=== PATIENT | male | born 1945 | race African-American/Black ===

== ENCOUNTER 2018-07-13 11:11 | Inpatient (IN) ==
[2018-07-13] MEDS ORDERED: DILTIAZEM 50 MG/10 ML VIAL IV STA (11:19)
[2018-07-13] MEDS ORDERED: AMIODARONE INJ 150 MG in DEXTROSE 5% 100 ML IV ONE (11:23)
[2018-07-13] MEDS ORDERED: AMIODARONE INJ 450 MG in DEXTROSE 5% 241 ML IV SCH ×3 (11:30→17:30)
[2018-07-13 11:45] LABS: Apearance,Urine Slightly Hazy (Clear); Bilirubin,Urine Negative (Negative); Blood, Urine Negative (Negative); Glucose,Urine (UA) Negative (Negative); Ketones,Urine 5 mg/dL (Negative); Mucus,Urine Occasional /LPF (Occasional); Nitrite,Urine Negative (Negative); Protein,Urine Negative; RBC,Urine 6 /HPF (0-4); Squamous Epithelial Cell,Urine Occasional /HPF (0-10); Urine Color Yellow (Yellow); Urine Specific Gravity 1.026 (1.001-1.035); WBC,Urine 47 /HPF (0-6)
[2018-07-13 11:52] LABS: Barbiturates Screen,Urine Negative (Negative); Benzodiazepines Screen,Urine Negative (Negative); Cannabinoid Screen,Urine Positive (Negative); Opiate Screen,Urine Negative (Negative); Phencyclidine Screen,Urine Negative (Negative)
[2018-07-13 11:53] LABS: Basophils % 0.4 % (0.0-0.8); Eosinophils # 0.4 10*3/uL (0.0-0.87); Eosinophils % 4.6 % (0.00-10.9); Hematocrit 42.3 VOL% (42.0-52.0); Hemoglobin 12.9 GM/DL (14.0-18.0); Immature Granulocytes % 1.3 %; Immature Granulocytes Absolute 0.12 #; Lymphocytes # 3.6 10*3/uL (1.4-4.0); Lymphocytes % 39.2 % (21.2-54.2); Mean Corpuscular HGB Conc 30.5 GM/DL (32-36); Mean Corpuscular Volume 83.8 FL (87-102); Mean Platelet Volume 11.8 FL (9.6-12.0); Monocytes % 4.5 % (1.7-12.7); Platelet Count 256 T/CUMM (130-400); Red Blood Count 5.05 MC/CUMM (3.8-5.5); Red Cell Distribution Width 16.4 % (9.3-17.3); White Blood Count 9.1 T/CUMM (4-12)
[2018-07-13 12:02] LABS: ABG Base Excess -5.6 MMOL/L (-2.5-2.5); ABG HCO3 19.8 MMOL/L (20-26); ABG Oxygen Saturation 99.7 % (95-100); ABG PCO2 39.3 MM HG (35-48); ABG PH 7.317 (7.35-7.45); ABG TCO2 17.9 MMOL/L (23-27)
[2018-07-13] MEDS ORDERED: MAGNESIUM SULF RIDER 2 GM in PREMIX 1 EACH IV PRN (12:05)
[2018-07-13] MEDS ORDERED: MAGNESIUM SULF RIDER 4 GM in PREMIX 1 EACH IV PRN (12:05)
[2018-07-13] MEDS ORDERED: POTASSIUM CHLORIDE RIDER 10 MEQ in PREMIX 1 EACH IV PRN (12:05)
[2018-07-13 12:18] LABS: Calcium 8.6 MG/DL (8.5-10.1); Osmolality,Calculated 287.5 MOS/KG (273-304)
[2018-07-13] MEDS ORDERED: MIDAZOLAM 2 MG/2 ML VIAL ONE (12:27)
[2018-07-13] MEDS ORDERED: MIDAZOLAM 2 MG/2 ML VIAL IV STA (12:32)
[2018-07-13] MEDS: SODIUM CHLORIDE 0.45% 1,000 ML IV SCH (13:03)
[2018-07-13] MEDS ORDERED: ETOMIDATE 20 MG/10 ML VIAL IV ONE ×2 (13:12→13:15)
[2018-07-13] MEDS ORDERED: ROCURONIUM 100 MG/10 ML VIAL IV ONE ×2 (13:12→13:16)
[2018-07-13] MEDS: ENOXAPARIN 30 MG/0.3 ML SYRINGE SUBCUT SCH (13:55)
[2018-07-13] MEDS ORDERED: hydrALAZINE 20 MG/1 ML VIAL ONE (14:28)
[2018-07-13] MEDS ORDERED: hydrALAZINE 20 MG/1 ML VIAL IV STA (14:29)
[2018-07-13] MEDS ORDERED: HEPARIN/NACL 0.9% 2 UNITS/ML 500 ML IV ONE (15:52)
[2018-07-13] MEDS ORDERED: fentaNYL 100 MCG/2 ML VIAL IV PRN (16:04)
[2018-07-13] MEDS ORDERED: MIDAZOLAM 2 MG/2 ML VIAL IV PRN (16:30)
[2018-07-13] MEDS: CISATRACURIUM 200 MG in SODIUM CHLORIDE 0.9% 180 ML IV SCH (16:57)
[2018-07-13 17:04] LABS: Basophils % 0.2 % (0.0-0.8); Hematocrit 41.9 VOL% (42.0-52.0); Immature Granulocytes % 0.5 %; Immature Granulocytes Absolute 0.13 #; Lymphocytes # 0.7 10*3/uL (1.4-4.0); Lymphocytes % 2.6 % (21.2-54.2); Mean Corpuscular Volume 83.1 FL (87-102); Mean Platelet Volume 10.6 FL (9.6-12.0); Monocytes % 5.4 % (1.7-12.7); Neutrophils % 91.3 % (38.7-73.9); Platelet Count 275 T/CUMM (130-400); Red Blood Count 5.04 MC/CUMM (3.8-5.5); Red Cell Distribution Width 16.4 % (9.3-17.3); White Blood Count 25.7 T/CUMM (4-12)
[2018-07-13] MEDS: fentaNYL INJ 1,250 MCG in SODIUM CHLORIDE 0.9% 225 ML IV PRN (17:04)
[2018-07-13] MEDS: MIDAZOLAM 100 MG in SODIUM CHLORIDE 0.9% 80 ML IV SCH (17:08)
[2018-07-13 17:20] LABS: ABG Base Excess -6.1 MMOL/L (-2.5-2.5); ABG HCO3 19.5 MMOL/L (20-26); ABG Oxygen Saturation 99.5 % (95-100); ABG PCO2 56.7 MM HG (35-48); ABG PH 7.214 (7.35-7.45); ABG TCO2 20.5 MMOL/L (23-27); INR 1.1; PT Patient Result 11.4 SECS; Partial Thromboplastin Time 27.8 SECS (0-40)
[2018-07-13 17:34] LABS: Blood Urea Nitrogen 20 MG/DL (7-18); CKMB % 2.5 %; Calcium 8.3 MG/DL (8.5-10.1); Glucose 377 MG/DL (74-106); Osmolality,Calculated 292.7 MOS/KG (273-304)
[2018-07-13 17:42] LABS: Troponin I 0.095 NG/ML (0.00-0.045)
[2018-07-13] MEDS: PANTOPRAZOLE 40 MG VIAL IV SCH (17:48)
[2018-07-13] MEDS: MINERAL OIL/PETROLATUM OPH OINT 3.5 GM TUBE BOTH EYES SCH ×2 (17:52→20:27)
[2018-07-13] MEDS: INSULIN REGULAR 100 UNIT/ML IV SCH ×2 (18:26→22:08)
[2018-07-13] MEDS: AMIODARONE INJ 450 MG in DEXTROSE 5% 241 ML IV SCH (18:45)
[2018-07-13 19:06] LABS: ABG Base Excess -5.5 MMOL/L (-2.5-2.5); ABG Oxygen Saturation 99.4 % (95-100); ABG PCO2 54.8 MM HG (35-48); ABG PH 7.232 (7.35-7.45); ABG TCO2 20.6 MMOL/L (23-27)
[2018-07-13] MEDS ORDERED: INSULIN REGULAR DRIP 100 ML IV PRN (20:01)
[2018-07-13] MEDS ORDERED: MAGNESIUM SULF RIDER 1 GM in PREMIX 1 EACH IV PRN (20:05)
[2018-07-13] MEDS: POTASSIUM CHLORIDE RIDER 100 ML IV PRN (20:15)
[2018-07-13 21:30] LABS: Band Neutrophils 3 % (0-10); Lymphocytes 5 % (20-55); Segmented Neutrophils 88 % (50-85); Total Cells Counted 100
[2018-07-13 21:31] LABS: Anisocytosis 1+; Platelet Estimate Adequate; Smudge Cells Few
[2018-07-13 22:35] LABS: Basophils % 0.1 % (0.0-0.8); Hematocrit 39.9 VOL% (42.0-52.0); Hemoglobin 12.4 GM/DL (14.0-18.0); Immature Granulocytes % 0.7 %; Immature Granulocytes Absolute 0.12 #; Lymphocytes # 0.8 10*3/uL (1.4-4.0); Lymphocytes % 4.4 % (21.2-54.2); Mean Corpuscular HGB Conc 31.1 GM/DL (32-36); Mean Platelet Volume 10.4 FL (9.6-12.0); Monocytes % 3.5 % (1.7-12.7); Neutrophils % 91.3 % (38.7-73.9); Platelet Count 237 T/CUMM (130-400); Red Blood Count 4.81 MC/CUMM (3.8-5.5); Red Cell Distribution Width 16.4 % (9.3-17.3); White Blood Count 18.1 T/CUMM (4-12)
[2018-07-13 22:53] LABS: PT Patient Result 11.3 SECS; Partial Thromboplastin Time 28.3 SECS (0-40)
[2018-07-13 22:56] LABS: CKMB % 3.9 %; Calcium 8.4 MG/DL (8.5-10.1); Osmolality,Calculated 284.5 MOS/KG (273-304)
[2018-07-13 22:59] LABS: Troponin I 0.147 NG/ML (0.00-0.045)
[2018-07-13 23:31] LABS: Apearance,Urine Slightly Hazy (Clear); Bacteria,Urine Occasional /HPF (Few); Bilirubin,Urine Negative (Negative); Blood, Urine Negative (Negative); Glucose,Urine (UA) >=500 mg/dL (Negative); Ketones,Urine 5 mg/dL (Negative); Mucus,Urine Occasional /LPF (Occasional); Nitrite,Urine Negative (Negative); Protein,Urine Negative; RBC,Urine 2 /HPF (0-4); Squamous Epithelial Cell,Urine Occasional /HPF (0-10); Urine Color Amber (Yellow); Urine Specific Gravity 1.023 (1.001-1.035); WBC,Urine 20 /HPF (0-6)
[2018-07-13 23:45] LABS: Anisocytosis 1+; Band Neutrophils 2 % (0-10); Eosinophils 2 % (0-10); Lymphocytes 2 % (20-55); Ovalocytes Few; Platelet Estimate Adequate; Segmented Neutrophils 94 % (50-85); Total Cells Counted 100
[2018-07-13 23:46] LABS: Smudge Cells Few
[2018-07-14] MEDS: SODIUM CHLORIDE 0.45% 1,000 ML IV SCH ×3 (02:25→21:03)
[2018-07-14] MEDS: fentaNYL INJ 1,250 MCG in SODIUM CHLORIDE 0.9% 225 ML IV PRN ×2 (02:27→09:25)
[2018-07-14] MEDS: INSULIN REGULAR 100 UNIT/ML IV SCH ×7 (03:06→21:38)
[2018-07-14] MEDS: POTASSIUM CHLORIDE RIDER 100 ML IV PRN ×2 (03:07→12:25)
[2018-07-14 04:35] LABS: ABG Base Excess -1.4 MMOL/L (-2.5-2.5); ABG Oxygen Saturation 99.6 % (95-100); ABG PCO2 32.8 MM HG (35-48); ABG PH 7.444 (7.35-7.45); ABG PO2 366.2 MM HG (80-95)
[2018-07-14 05:02] LABS: Basophils % 0.1 % (0.0-0.8); Eosinophils % 0.1 % (0.00-10.9); Hematocrit 38.2 VOL% (42.0-52.0); Hemoglobin 12.2 GM/DL (14.0-18.0); Immature Granulocytes % 0.4 %; Immature Granulocytes Absolute 0.05 #; Lymphocytes # 1.3 10*3/uL (1.4-4.0); Lymphocytes % 9.5 % (21.2-54.2); Mean Corpuscular HGB Conc 31.9 GM/DL (32-36); Mean Corpuscular Volume 79.7 FL (87-102); Mean Platelet Volume 10.9 FL (9.6-12.0); Monocytes % 7.2 % (1.7-12.7); Neutrophils % 82.7 % (38.7-73.9); Platelet Count 227 T/CUMM (130-400); Red Blood Count 4.79 MC/CUMM (3.8-5.5); Red Cell Distribution Width 16.3 % (9.3-17.3); White Blood Count 13.3 T/CUMM (4-12)
[2018-07-14 05:21] LABS: PT Patient Result 11.2 SECS; Partial Thromboplastin Time 28.8 SECS (0-40)
[2018-07-14 05:40] LABS: CKMB % 5.6 %; Calcium 8.1 MG/DL (8.5-10.1); Osmolality,Calculated 277.5 MOS/KG (273-304); Risk Ratio 1.68
[2018-07-14 05:41] LABS: Troponin I 0.142 NG/ML (0.00-0.045)
[2018-07-14] MEDS ORDERED: DEXAMETHASONE INJ 10 MG in SODIUM CHLORIDE 0.9% 50 ML IV ONE (07:30)
[2018-07-14] MEDS: PIPERACILLIN/TAZOBACTAM 3,375 MG in SODIUM CHLORIDE 0.9% 100 ML IV SCH ×3 (08:56→22:57)
[2018-07-14] MEDS ORDERED: SODIUM CHLORIDE 0.9% 1,000 ML IV ONE (09:03)
[2018-07-14] MEDS ORDERED: SODIUM CHLORIDE 0.9% 500 ML IV ONE (09:20)
[2018-07-14] MEDS: MINERAL OIL/PETROLATUM OPH OINT 3.5 GM TUBE BOTH EYES SCH ×3 (09:31→20:32)
[2018-07-14] MEDS ORDERED: PHENYLEPHRINE DRIP 40 MG/250 ML PREMIX IV ONE (09:44)
[2018-07-14] MEDS ORDERED: PHENYLEPHRINE DRIP 40 MG/250 ML PREMIX IV PRN (09:46)
[2018-07-14] MEDS: ASPIRIN EC 81 MG TABLET PO SCH (10:36)
[2018-07-14] MEDS: AMIODARONE INJ 450 MG in DEXTROSE 5% 241 ML IV SCH (10:45)
[2018-07-14 11:41] LABS: Basophils % 0.2 % (0.0-0.8); Eosinophils % 0.1 % (0.00-10.9); Hematocrit 37.2 VOL% (42.0-52.0); Hemoglobin 11.9 GM/DL (14.0-18.0); Immature Granulocytes % 0.5 %; Immature Granulocytes Absolute 0.07 #; Lymphocytes # 1.2 10*3/uL (1.4-4.0); Lymphocytes % 8.3 % (21.2-54.2); Mean Corpuscular Volume 80.7 FL (87-102); Mean Platelet Volume 10.5 FL (9.6-12.0); Monocytes % 2.9 % (1.7-12.7); Platelet Count 228 T/CUMM (130-400); Red Blood Count 4.61 MC/CUMM (3.8-5.5); Red Cell Distribution Width 16.6 % (9.3-17.3)
[2018-07-14 11:47] LABS: PT Patient Result 11.2 SECS; Partial Thromboplastin Time 28.8 SECS (0-40)
[2018-07-14 12:06] LABS: Calcium 7.7 MG/DL (8.5-10.1); Osmolality,Calculated 282.3 MOS/KG (273-304)
[2018-07-14] MEDS: ENOXAPARIN 30 MG/0.3 ML SYRINGE SUBCUT SCH (13:18)
[2018-07-14] MEDS: DEXAMETHASONE 4 MG/1 ML VIAL IV SCH ×2 (13:23→18:13)
[2018-07-14 17:28] LABS: Basophils % 0.2 % (0.0-0.8); Hematocrit 39.8 VOL% (42.0-52.0); Hemoglobin 12.6 GM/DL (14.0-18.0); Immature Granulocytes % 0.4 %; Immature Granulocytes Absolute 0.06 #; Lymphocytes % 6.1 % (21.2-54.2); Mean Corpuscular HGB Conc 31.7 GM/DL (32-36); Mean Corpuscular Volume 80.1 FL (87-102); Mean Platelet Volume 10.6 FL (9.6-12.0); Monocytes % 1.2 % (1.7-12.7); Neutrophils % 92.1 % (38.7-73.9); Platelet Count 255 T/CUMM (130-400); Red Blood Count 4.97 MC/CUMM (3.8-5.5); Red Cell Distribution Width 16.6 % (9.3-17.3); White Blood Count 16.3 T/CUMM (4-12)
[2018-07-14 17:42] LABS: PT Patient Result 11.1 SECS; Partial Thromboplastin Time 32.9 SECS (0-40)
[2018-07-14 17:45] LABS: Calcium 8.1 MG/DL (8.5-10.1); Osmolality,Calculated 275.8 MOS/KG (273-304)
[2018-07-14 18:00] LABS: Lymphocytes 3 % (20-55); Platelet Estimate Normal; Segmented Neutrophils 96 % (50-85); Sickle Cells Few; Total Cells Counted 100
[2018-07-14] MEDS: CISATRACURIUM 200 MG in SODIUM CHLORIDE 0.9% 180 ML IV SCH (18:02)
[2018-07-14] MEDS: PANTOPRAZOLE 40 MG VIAL IV SCH (18:05)
[2018-07-14] MEDS: MIDAZOLAM 100 MG in SODIUM CHLORIDE 0.9% 80 ML IV SCH (18:10)
[2018-07-14] MEDS ORDERED: HEPARIN/NACL 0.9% 2 UNITS/ML 500 ML IV ONE (19:28)
[2018-07-14 23:14] LABS: Basophils % 0.1 % (0.0-0.8); Immature Granulocytes % 0.6 %; Lymphocytes # 0.8 10*3/uL (1.4-4.0); Lymphocytes % 5.1 % (21.2-54.2); Mean Corpuscular HGB Conc 31.6 GM/DL (32-36); Mean Corpuscular Volume 80.7 FL (87-102); Monocytes % 0.7 % (1.7-12.7); Neutrophils % 93.5 % (38.7-73.9); Platelet Count 238 T/CUMM (130-400); Red Blood Count 4.71 MC/CUMM (3.8-5.5); Red Cell Distribution Width 16.7 % (9.3-17.3); White Blood Count 16.2 T/CUMM (4-12)
[2018-07-14 23:22] LABS: PT Patient Result 11.1 SECS
[2018-07-14 23:23] LABS: Calcium 8.2 MG/DL (8.5-10.1); Osmolality,Calculated 276.7 MOS/KG (273-304)
[2018-07-14 23:56] LABS: Band Neutrophils 2 % (0-10); Lymphocytes 6 % (20-55); Segmented Neutrophils 91 % (50-85); Total Cells Counted 100
[2018-07-14 23:57] LABS: Acanthocytes Few; Anisocytosis 1+; Platelet Estimate Adequate
[2018-07-15] MEDS: DEXAMETHASONE 4 MG/1 ML VIAL IV SCH ×4 (00:55→18:11)
[2018-07-15] MEDS: INSULIN REGULAR 100 UNIT/ML IV SCH ×9 (01:06→21:50)
[2018-07-15] MEDS: SODIUM CHLORIDE 0.45% 1,000 ML IV SCH ×5 (01:16→22:27)
[2018-07-15 05:21] LABS: ABG Base Excess -4.6 MMOL/L (-2.5-2.5); ABG HCO3 20.6 MMOL/L (20-26); ABG Oxygen Saturation 99.5 % (95-100); ABG PCO2 32.2 MM HG (35-48); ABG PH 7.389 (7.35-7.45); ABG TCO2 17.3 MMOL/L (23-27)
[2018-07-15] MEDS ORDERED: MAGNESIUM SULF RIDER 1 GM in PREMIX 1 EACH IV PRN (06:04)
[2018-07-15 06:17] LABS: Basophils % 0.1 % (0.0-0.8); Hematocrit 36.2 VOL% (42.0-52.0); Hemoglobin 11.5 GM/DL (14.0-18.0); Immature Granulocytes % 0.5 %; Immature Granulocytes Absolute 0.08 #; Lymphocytes # 1.2 10*3/uL (1.4-4.0); Lymphocytes % 7.5 % (21.2-54.2); Mean Corpuscular HGB Conc 31.8 GM/DL (32-36); Mean Corpuscular Volume 80.4 FL (87-102); Monocytes % 1.3 % (1.7-12.7); Neutrophils % 90.6 % (38.7-73.9); Platelet Count 227 T/CUMM (130-400); Red Cell Distribution Width 16.8 % (9.3-17.3); White Blood Count 16.1 T/CUMM (4-12)
[2018-07-15 06:26] LABS: PT Patient Result 10.7 SECS; Partial Thromboplastin Time 29.2 SECS (0-40)
[2018-07-15] MEDS: PIPERACILLIN/TAZOBACTAM 3,375 MG in SODIUM CHLORIDE 0.9% 100 ML IV SCH ×3 (06:42→22:55)
[2018-07-15 06:52] LABS: CKMB % 8.1 %
[2018-07-15 06:53] LABS: Lymphocytes 10 % (20-55); Platelet Estimate Adequate; Segmented Neutrophils 89 % (50-85); Total Cells Counted 100; Troponin I 0.094 NG/ML (0.00-0.045)
[2018-07-15 06:54] LABS: Burr Cells Slight; Hypochromasia 1+; Ovalocytes Slight
[2018-07-15 07:03] LABS: Albumin 2.4 G/DL (3.4-5.0); Bilirubin,Total 0.4 MG/DL (0.2-1.0); Osmolality,Calculated 276.7 MOS/KG (273-304); Total Protein 5.7 G/DL (6.4-8.3)
[2018-07-15] MEDS: MORPHINE 4 MG/1 ML VIAL IV PRN ×2 (08:19→21:05)
[2018-07-15] MEDS: ASPIRIN EC 81 MG TABLET PO SCH (09:12)
[2018-07-15] MEDS: MINERAL OIL/PETROLATUM OPH OINT 3.5 GM TUBE BOTH EYES SCH ×3 (09:13→21:17)
[2018-07-15] MEDS ORDERED: PROPOFOL 1,000 MG/100 ML BOTTLE IV ONE (09:21)
[2018-07-15] MEDS: PROPOFOL 1,000 MG/100 ML BOTTLE IV SCH ×3 (09:40→18:35)
[2018-07-15] MEDS: ENOXAPARIN 30 MG/0.3 ML SYRINGE SUBCUT SCH (12:09)
[2018-07-15] MEDS: PANTOPRAZOLE 40 MG VIAL IV SCH (15:40)
[2018-07-15] MEDS: CISATRACURIUM 200 MG in SODIUM CHLORIDE 0.9% 180 ML IV SCH (15:54)
[2018-07-15] MEDS: MIDAZOLAM 100 MG in SODIUM CHLORIDE 0.9% 80 ML IV SCH (15:54)
[2018-07-16] MEDS: DEXAMETHASONE 4 MG/1 ML VIAL IV SCH ×4 (00:55→18:29)
[2018-07-16] MEDS: INSULIN REGULAR 100 UNIT/ML IV SCH ×6 (02:04→22:10)
[2018-07-16] MEDS: PROPOFOL 1,000 MG/100 ML BOTTLE IV SCH ×4 (02:45→20:30)
[2018-07-16] MEDS: SODIUM CHLORIDE 0.45% 1,000 ML IV SCH ×5 (03:46→23:11)
[2018-07-16 03:49] LABS: ABG Base Excess -2.2 MMOL/L (-2.5-2.5); ABG HCO3 22.2 MMOL/L (20-26); ABG Oxygen Saturation 99.2 % (95-100); ABG PCO2 36.9 MM HG (35-48); ABG PH 7.398 (7.35-7.45); ABG PO2 227.3 MM HG (80-95); ABG TCO2 23.4 MMOL/L (23-27)
[2018-07-16 03:56] LABS: Basophils % 0.1 % (0.0-0.8); Hematocrit 35.9 VOL% (42.0-52.0); Hemoglobin 11.7 GM/DL (14.0-18.0); Immature Granulocytes % 0.3 %; Immature Granulocytes Absolute 0.05 #; Lymphocytes # 0.5 10*3/uL (1.4-4.0); Lymphocytes % 3.1 % (21.2-54.2); Mean Corpuscular HGB Conc 32.6 GM/DL (32-36); Mean Corpuscular Volume 79.4 FL (87-102); Mean Platelet Volume 11.8 FL (9.6-12.0); Monocytes % 3.5 % (1.7-12.7); Platelet Count 230 T/CUMM (130-400); Red Blood Count 4.52 MC/CUMM (3.8-5.5); Red Cell Distribution Width 16.9 % (9.3-17.3)
[2018-07-16 04:29] LABS: Alanine Aminotransferase 85 U/L (16-61); Albumin 2.6 G/DL (3.4-5.0); Alkaline Phosphatase 75 U/L (45-117); Aspartate Amino Transferase 40 U/L (0-37); Bilirubin,Total < 0.39 MG/DL (0.2-1.0); Blood Urea Nitrogen 26 MG/DL (7-18); Glucose 110 MG/DL (74-106); Osmolality,Calculated 282.5 MOS/KG (273-304); Total Protein 6.1 G/DL (6.4-8.3)
[2018-07-16 04:36] LABS: Lymphocytes 2 % (20-55); Segmented Neutrophils 97 % (50-85); Target Cells Few; Total Cells Counted 100
[2018-07-16 04:37] LABS: % Iron Saturation 6.2 % (18-50); Burr Cells Slight; Microcytosis Slight
[2018-07-16 04:38] LABS: Hypochromasia Slight
[2018-07-16 04:39] LABS: Platelet Estimate Normal
[2018-07-16] MEDS: PIPERACILLIN/TAZOBACTAM 3,375 MG in SODIUM CHLORIDE 0.9% 100 ML IV SCH ×2 (06:31→17:00)
[2018-07-16] MEDS: MINERAL OIL/PETROLATUM OPH OINT 3.5 GM TUBE BOTH EYES SCH ×3 (08:44→21:41)
[2018-07-16] MEDS: ASPIRIN EC 81 MG TABLET PO SCH (08:44)
[2018-07-16] MEDS: MORPHINE 4 MG/1 ML VIAL IV PRN (10:07)
[2018-07-16] MEDS: FERRIC GLUCONATE COMPLEX 125 MG in SODIUM CHLORIDE 0.9% 100 ML IV SCH (10:21)
[2018-07-16] MEDS: AMIODARONE 200 MG TABLET PO SCH ×2 (11:35→21:41)
[2018-07-16] MEDS: ENOXAPARIN 30 MG/0.3 ML SYRINGE SUBCUT SCH (12:55)
[2018-07-16] MEDS ORDERED: DEXTROSE 50% 25 GM/50 ML SYRINGE IV PRN (15:00)
[2018-07-16] MEDS ORDERED: GLUCAGON 1 MG VIAL IM PRN (15:00)
[2018-07-16] MEDS: PANTOPRAZOLE 40 MG VIAL IV SCH (17:00)
[2018-07-17] MEDS: DEXAMETHASONE 4 MG/1 ML VIAL IV SCH ×4 (01:55→19:45)
[2018-07-17] MEDS: INSULIN REGULAR 100 UNIT/ML IV SCH ×2 (01:58→07:38)
[2018-07-17] MEDS: PROPOFOL 1,000 MG/100 ML BOTTLE IV SCH ×4 (03:45→22:09)
[2018-07-17 04:35] LABS: ABG Base Excess 1.5 MMOL/L (-2.5-2.5); ABG HCO3 25.7 MMOL/L (20-26); ABG Oxygen Saturation 99.8 % (95-100); ABG PCO2 33.9 MM HG (35-48); ABG PH 7.471 (7.35-7.45); ABG TCO2 22.3 MMOL/L (23-27)
[2018-07-17 04:40] LABS: Basophils % 0.1 % (0.0-0.8); Hemoglobin 10.1 GM/DL (14.0-18.0); Immature Granulocytes % 0.6 %; Immature Granulocytes Absolute 0.07 #; Lymphocytes # 0.6 10*3/uL (1.4-4.0); Lymphocytes % 4.6 % (21.2-54.2); Mean Corpuscular HGB Conc 32.6 GM/DL (32-36); Mean Corpuscular Volume 78.7 FL (87-102); Mean Platelet Volume 11.5 FL (9.6-12.0); Monocytes % 2.9 % (1.7-12.7); Neutrophils % 91.8 % (38.7-73.9); Platelet Count 198 T/CUMM (130-400); Red Blood Count 3.94 MC/CUMM (3.8-5.5); Red Cell Distribution Width 16.7 % (9.3-17.3)
[2018-07-17 04:48] LABS: PT Patient Result 10.9 SECS; Partial Thromboplastin Time 27.3 SECS (0-40)
[2018-07-17] MEDS: SODIUM CHLORIDE 0.45% 1,000 ML IV SCH ×4 (04:55→19:45)
[2018-07-17 04:58] LABS: Alanine Aminotransferase 63 U/L (16-61); Albumin 2.5 G/DL (3.4-5.0); Alkaline Phosphatase 63 U/L (45-117); Aspartate Amino Transferase 37 U/L (0-37); Bilirubin,Total < 0.39 MG/DL (0.2-1.0); Blood Urea Nitrogen 24 MG/DL (7-18); Calcium 7.9 MG/DL (8.5-10.1); Glucose 141 MG/DL (74-106); Osmolality,Calculated 286.3 MOS/KG (273-304); Total Protein 5.6 G/DL (6.4-8.3)
[2018-07-17 06:13] LABS: Anisocytosis 1+; Hypochromasia 1+; Lymphocytes 3 % (20-55); Segmented Neutrophils 96 % (50-85); Target Cells 1+; Total Cells Counted 100
[2018-07-17 06:14] LABS: Platelet Estimate Adequate
[2018-07-17] MEDS: INSULIN REGULAR 100 UNIT/ML SUBCUT SCH ×4 (07:20→19:46)
[2018-07-17] MEDS: PIPERACILLIN/TAZOBACTAM 3,375 MG in SODIUM CHLORIDE 0.9% 100 ML IV SCH ×3 (07:20→22:07)
[2018-07-17] MEDS: FERRIC GLUCONATE COMPLEX 125 MG in SODIUM CHLORIDE 0.9% 100 ML IV SCH (09:12)
[2018-07-17] MEDS: MINERAL OIL/PETROLATUM OPH OINT 3.5 GM TUBE BOTH EYES SCH ×3 (09:15→20:51)
[2018-07-17] MEDS: AMIODARONE 200 MG TABLET PO SCH ×3 (12:17→20:51)
[2018-07-17] MEDS: ENOXAPARIN 30 MG/0.3 ML SYRINGE SUBCUT SCH (12:17)
[2018-07-17] MEDS: ASPIRIN EC 81 MG TABLET PO SCH (12:36)
[2018-07-17] MEDS: ASPIRIN CHEW 81 MG TABLET PO SCH (12:38)
[2018-07-17] MEDS ORDERED: VANCOMYCIN INJ 1,000 MG in SODIUM CHLORIDE 0.9% 250 ML IV SCH (13:30)
[2018-07-17] MEDS: OXACILLIN 2,000 MG in SODIUM CHLORIDE 0.9% 100 ML IV SCH ×2 (15:22→20:50)
[2018-07-17] MEDS: PANTOPRAZOLE 40 MG VIAL IV SCH (15:48)
[2018-07-17] MEDS ORDERED: ATROPINE 1 MG/10 ML SYRINGE IV PRN (22:48)
[2018-07-17] MEDS ORDERED: SODIUM CHLORIDE 0.9% 500 ML IV ONE (22:48)
[2018-07-18] MEDS: INSULIN REGULAR 100 UNIT/ML SUBCUT SCH ×7 (00:07→23:54)
[2018-07-18] MEDS: DEXAMETHASONE 4 MG/1 ML VIAL IV SCH ×4 (01:44→18:04)
[2018-07-18] MEDS: OXACILLIN 2,000 MG in SODIUM CHLORIDE 0.9% 100 ML IV SCH ×4 (02:27→20:53)
[2018-07-18] MEDS: MORPHINE 4 MG/1 ML VIAL IV PRN (02:32)
[2018-07-18] MEDS: SODIUM CHLORIDE 0.45% 1,000 ML IV SCH ×2 (02:37→05:20)
[2018-07-18 04:13] LABS: ABG HCO3 27.1 MMOL/L (20-26); ABG Oxygen Saturation 99.8 % (95-100); ABG PCO2 31.3 MM HG (35-48); ABG PH 7.518 (7.35-7.45)
[2018-07-18 04:22] LABS: Basophils % 0.1 % (0.0-0.8); Hematocrit 30.3 VOL% (42.0-52.0); Hemoglobin 9.8 GM/DL (14.0-18.0); Immature Granulocytes % 0.3 %; Immature Granulocytes Absolute 0.04 #; Lymphocytes # 0.9 10*3/uL (1.4-4.0); Lymphocytes % 7.5 % (21.2-54.2); Mean Corpuscular HGB Conc 32.3 GM/DL (32-36); Mean Corpuscular Volume 79.5 FL (87-102); Mean Platelet Volume 11.7 FL (9.6-12.0); Monocytes % 5.6 % (1.7-12.7); Neutrophils % 86.5 % (38.7-73.9); Platelet Count 174 T/CUMM (130-400); Red Blood Count 3.81 MC/CUMM (3.8-5.5); Red Cell Distribution Width 16.6 % (9.3-17.3); White Blood Count 12.3 T/CUMM (4-12)
[2018-07-18 04:55] LABS: Calcium 7.8 MG/DL (8.5-10.1); Osmolality,Calculated 291.8 MOS/KG (273-304)
[2018-07-18] MEDS: PIPERACILLIN/TAZOBACTAM 3,375 MG in SODIUM CHLORIDE 0.9% 100 ML IV SCH ×3 (08:18→23:53)
[2018-07-18] MEDS: ASPIRIN CHEW 81 MG TABLET PO SCH (08:19)
[2018-07-18] MEDS: MINERAL OIL/PETROLATUM OPH OINT 3.5 GM TUBE BOTH EYES SCH ×3 (08:20→20:53)
[2018-07-18] MEDS ORDERED: AMIODARONE 200 MG TABLET PO SCH (09:00)
[2018-07-18 09:25] LABS: HIV Antigen/Antibody Result Nonreactive (Nonreactive); Hepatitis B Surface Ag Quant < 0.10 Index; Hepatitis B Surface Ag Result Negative (Negative); Hepatitis C Virus Ab Quant < 0.02 Index; Hepatitis C Virus Ab Result Negative (Negative)
[2018-07-18] MEDS: FERRIC GLUCONATE COMPLEX 125 MG in SODIUM CHLORIDE 0.9% 100 ML IV SCH (09:56)
[2018-07-18] MEDS: PROPOFOL 1,000 MG/100 ML BOTTLE IV SCH ×3 (10:00→22:29)
[2018-07-18] MEDS: AMIODARONE 200 MG TABLET PO SCH (11:10)
[2018-07-18] MEDS: ENOXAPARIN 30 MG/0.3 ML SYRINGE SUBCUT SCH (11:53)
[2018-07-18] MEDS: PANTOPRAZOLE 40 MG VIAL IV SCH (15:45)
[2018-07-18] MEDS ORDERED: NOREPINEPHRINE 8 MG in SODIUM CHLORIDE 0.9% 242 ML IV PRN (20:33)
[2018-07-19] MEDS: DEXAMETHASONE 4 MG/1 ML VIAL IV SCH ×4 (03:15→18:35)
[2018-07-19] MEDS: OXACILLIN 2,000 MG in SODIUM CHLORIDE 0.9% 100 ML IV SCH ×4 (03:15→21:03)
[2018-07-19 03:19] LABS: ABG Base Excess 4.4 MMOL/L (-2.5-2.5); ABG HCO3 28.4 MMOL/L (20-26); ABG Oxygen Saturation 99.7 % (95-100); ABG PCO2 35.8 MM HG (35-48); ABG PH 7.496 (7.35-7.45); ABG TCO2 24.9 MMOL/L (23-27)
[2018-07-19] MEDS: PROPOFOL 1,000 MG/100 ML BOTTLE IV SCH ×3 (03:35→18:00)
[2018-07-19 04:32] LABS: Hematocrit 31.1 VOL% (42.0-52.0); Immature Granulocytes % 0.7 %; Immature Granulocytes Absolute 0.08 #; Lymphocytes # 0.8 10*3/uL (1.4-4.0); Lymphocytes % 7.4 % (21.2-54.2); Mean Corpuscular HGB Conc 32.2 GM/DL (32-36); Mean Corpuscular Volume 79.7 FL (87-102); Mean Platelet Volume 12.1 FL (9.6-12.0); Monocytes % 6.2 % (1.7-12.7); Neutrophils % 85.7 % (38.7-73.9); Platelet Count 176 T/CUMM (130-400); Red Cell Distribution Width 16.8 % (9.3-17.3); White Blood Count 10.9 T/CUMM (4-12)
[2018-07-19] MEDS: INSULIN REGULAR 100 UNIT/ML SUBCUT SCH ×5 (04:38→20:57)
[2018-07-19 05:05] LABS: Osmolality,Calculated 296.3 MOS/KG (273-304)
[2018-07-19] MEDS: PIPERACILLIN/TAZOBACTAM 3,375 MG in SODIUM CHLORIDE 0.9% 100 ML IV SCH (06:24)
[2018-07-19] MEDS: ASPIRIN CHEW 81 MG TABLET PO SCH (11:15)
[2018-07-19] MEDS: FERRIC GLUCONATE COMPLEX 125 MG in SODIUM CHLORIDE 0.9% 100 ML IV SCH (11:15)
[2018-07-19] MEDS: AMIODARONE 200 MG TABLET PO SCH (11:15)
[2018-07-19] MEDS: MEROPENEM 1,000 MG in SODIUM CHLORIDE 0.9% 100 ML IV SCH ×2 (11:15→18:30)
[2018-07-19] MEDS: POTASSIUM CHLORIDE 20 MEQ/15 ML UDCUP PER TUBE SCH ×3 (11:17→21:03)
[2018-07-19] MEDS: MINERAL OIL/PETROLATUM OPH OINT 3.5 GM TUBE BOTH EYES SCH ×3 (11:17→21:03)
[2018-07-19] MEDS: ENOXAPARIN 30 MG/0.3 ML SYRINGE SUBCUT SCH (14:00)
[2018-07-19 15:54] LABS: Apearance,Urine CLEAR (Clear); Bilirubin,Urine Negative (Negative); Blood, Urine Negative (Negative); Glucose,Urine (UA) Negative (Negative); Hyaline Casts,Urine 1 /LPF (0-3); Ketones,Urine Negative (Negative); Mucus,Urine Occasional /LPF (Occasional); Nitrite,Urine Negative (Negative); Protein,Urine Negative; RBC,Urine 5 /HPF (0-4); Squamous Epithelial Cell,Urine Occasional /HPF (0-10); Urine Color Yellow (Yellow); Urine Specific Gravity 1.016 (1.001-1.035); Urine Urobilinogen < 2.0 EU/DL (0.2-1.0); WBC,Urine 2 /HPF (0-6)
[2018-07-19] MEDS: PANTOPRAZOLE 40 MG VIAL IV SCH (18:30)
[2018-07-20] MEDS: DEXAMETHASONE 4 MG/1 ML VIAL IV SCH ×4 (00:31→18:15)
[2018-07-20] MEDS: PROPOFOL 1,000 MG/100 ML BOTTLE IV SCH ×4 (00:32→21:08)
[2018-07-20] MEDS: INSULIN REGULAR 100 UNIT/ML SUBCUT SCH ×7 (00:54→23:48)
[2018-07-20] MEDS: MEROPENEM 1,000 MG in SODIUM CHLORIDE 0.9% 100 ML IV SCH ×3 (02:45→16:15)
[2018-07-20] MEDS: OXACILLIN 2,000 MG in SODIUM CHLORIDE 0.9% 100 ML IV SCH ×4 (03:28→21:08)
[2018-07-20 03:39] LABS: ABG Base Excess 3.4 MMOL/L (-2.5-2.5); ABG HCO3 27.5 MMOL/L (20-26); ABG Oxygen Saturation 99.7 % (95-100); ABG PCO2 35.7 MM HG (35-48); ABG PH 7.482 (7.35-7.45); ABG TCO2 23.8 MMOL/L (23-27)
[2018-07-20 03:48] LABS: Basophils % 0.1 % (0.0-0.8); Eosinophils % 0.1 % (0.00-10.9); Hematocrit 33.9 VOL% (42.0-52.0); Hemoglobin 10.6 GM/DL (14.0-18.0); Immature Granulocytes % 1.2 %; Immature Granulocytes Absolute 0.11 #; Lymphocytes # 1.1 10*3/uL (1.4-4.0); Lymphocytes % 12.6 % (21.2-54.2); Mean Corpuscular HGB Conc 31.3 GM/DL (32-36); Mean Corpuscular Volume 80.9 FL (87-102); Mean Platelet Volume 11.1 FL (9.6-12.0); Monocytes % 8.3 % (1.7-12.7); Neutrophils % 77.7 % (38.7-73.9); Platelet Count 183 T/CUMM (130-400); Red Blood Count 4.19 MC/CUMM (3.8-5.5); Red Cell Distribution Width 16.5 % (9.3-17.3); White Blood Count 8.8 T/CUMM (4-12)
[2018-07-20] MEDS: ASPIRIN CHEW 81 MG TABLET PO SCH (08:50)
[2018-07-20] MEDS: FERRIC GLUCONATE COMPLEX 125 MG in SODIUM CHLORIDE 0.9% 100 ML IV SCH (08:55)
[2018-07-20] MEDS: MINERAL OIL/PETROLATUM OPH OINT 3.5 GM TUBE BOTH EYES SCH ×3 (09:00→21:08)
[2018-07-20] MEDS: ENOXAPARIN 40 MG/0.4 ML SYRINGE SUBCUT SCH (12:05)
[2018-07-20] MEDS: PANTOPRAZOLE 40 MG VIAL IV SCH (16:15)
[2018-07-21] MEDS: DEXAMETHASONE 4 MG/1 ML VIAL IV SCH ×4 (02:26→18:28)
[2018-07-21] MEDS: MEROPENEM 1,000 MG in SODIUM CHLORIDE 0.9% 100 ML IV SCH ×3 (02:26→16:55)
[2018-07-21 03:23] LABS: ABG Base Excess 3.2 MMOL/L (-2.5-2.5); ABG HCO3 27.3 MMOL/L (20-26); ABG Oxygen Saturation 99.6 % (95-100); ABG PH 7.453 (7.35-7.45); ABG TCO2 24.2 MMOL/L (23-27)
[2018-07-21 03:25] LABS: Basophils % 0.1 % (0.0-0.8); Hematocrit 36.4 VOL% (42.0-52.0); Hemoglobin 11.2 GM/DL (14.0-18.0); Immature Granulocytes % 1.3 %; Immature Granulocytes Absolute 0.13 #; Lymphocytes # 1.1 10*3/uL (1.4-4.0); Lymphocytes % 10.1 % (21.2-54.2); Mean Corpuscular HGB Conc 30.8 GM/DL (32-36); Mean Corpuscular Volume 81.8 FL (87-102); Monocytes % 4.2 % (1.7-12.7); Neutrophils % 84.3 % (38.7-73.9); Platelet Count 193 T/CUMM (130-400); Red Blood Count 4.45 MC/CUMM (3.8-5.5); Red Cell Distribution Width 16.7 % (9.3-17.3); White Blood Count 10.4 T/CUMM (4-12)
[2018-07-21] MEDS: OXACILLIN 2,000 MG in SODIUM CHLORIDE 0.9% 100 ML IV SCH ×4 (03:25→22:07)
[2018-07-21] MEDS: INSULIN REGULAR 100 UNIT/ML SUBCUT SCH ×5 (03:26→20:41)
[2018-07-21 03:39] LABS: Calcium 8.1 MG/DL (8.5-10.1); Osmolality,Calculated 286.3 MOS/KG (273-304)
[2018-07-21] MEDS: PROPOFOL 1,000 MG/100 ML BOTTLE IV SCH (03:46)
[2018-07-21] MEDS: ASPIRIN CHEW 81 MG TABLET PO SCH (07:30)
[2018-07-21 07:37] LABS: ABG Base Excess 4.5 MMOL/L (-2.5-2.5); ABG HCO3 28.4 MMOL/L (20-26); ABG Oxygen Saturation 99.1 % (95-100); ABG PCO2 42.9 MM HG (35-48); ABG TCO2 25.5 MMOL/L (23-27)
[2018-07-21] MEDS: MINERAL OIL/PETROLATUM OPH OINT 3.5 GM TUBE BOTH EYES SCH ×3 (09:15→22:07)
[2018-07-21] MEDS: FERRIC GLUCONATE COMPLEX 125 MG in SODIUM CHLORIDE 0.9% 100 ML IV SCH (09:20)
[2018-07-21] MEDS: ENOXAPARIN 40 MG/0.4 ML SYRINGE SUBCUT SCH (12:20)
[2018-07-21] MEDS: PANTOPRAZOLE 40 MG VIAL IV SCH (16:08)
[2018-07-22] MEDS: INSULIN REGULAR 100 UNIT/ML SUBCUT SCH ×4 (00:59→12:55)
[2018-07-22] MEDS: DEXAMETHASONE 4 MG/1 ML VIAL IV SCH ×4 (02:59→18:20)
[2018-07-22] MEDS: MEROPENEM 1,000 MG in SODIUM CHLORIDE 0.9% 100 ML IV SCH ×3 (02:59→17:09)
[2018-07-22] MEDS: OXACILLIN 2,000 MG in SODIUM CHLORIDE 0.9% 100 ML IV SCH ×4 (04:23→20:27)
[2018-07-22 04:35] LABS: ABG Base Excess 4.7 MMOL/L (-2.5-2.5); ABG HCO3 27.9 MMOL/L (20-26); ABG Oxygen Saturation 97.3 % (95-100); ABG PCO2 36.7 MM HG (35-48); ABG PH 7.499 (7.35-7.45); ABG PO2 94.4 MM HG (80-95)
[2018-07-22 04:41] LABS: Basophils % 0.1 % (0.0-0.8); Hematocrit 34.2 VOL% (42.0-52.0); Hemoglobin 10.7 GM/DL (14.0-18.0); Immature Granulocytes % 1.1 %; Immature Granulocytes Absolute 0.15 #; Lymphocytes # 1.4 10*3/uL (1.4-4.0); Lymphocytes % 10.7 % (21.2-54.2); Mean Corpuscular HGB Conc 31.3 GM/DL (32-36); Mean Corpuscular Volume 80.9 FL (87-102); Mean Platelet Volume 10.7 FL (9.6-12.0); Monocytes % 5.3 % (1.7-12.7); Neutrophils % 82.8 % (38.7-73.9); Platelet Count 206 T/CUMM (130-400); Red Blood Count 4.23 MC/CUMM (3.8-5.5); Red Cell Distribution Width 16.4 % (9.3-17.3); White Blood Count 13.5 T/CUMM (4-12)
[2018-07-22 05:30] LABS: Calcium 7.1 MG/DL (8.5-10.1); Osmolality,Calculated 292.4 MOS/KG (273-304)
[2018-07-22] MEDS ORDERED: MAGNESIUM SULF RIDER 2 GM in PREMIX 1 EACH IV PRN (07:18)
[2018-07-22] MEDS ORDERED: MAGNESIUM SULF RIDER 4 GM in PREMIX 1 EACH IV PRN (07:18)
[2018-07-22] MEDS: ASPIRIN CHEW 81 MG TABLET PO SCH (09:45)
[2018-07-22] MEDS: FERRIC GLUCONATE COMPLEX 125 MG in SODIUM CHLORIDE 0.9% 100 ML IV SCH (09:45)
[2018-07-22] MEDS: MINERAL OIL/PETROLATUM OPH OINT 3.5 GM TUBE BOTH EYES SCH (10:03)
[2018-07-22] MEDS: POTASSIUM CHLORIDE RIDER 20 MEQ in PREMIX 1 EACH IV PRN ×2 (10:04→12:04)
[2018-07-22] MEDS ORDERED: POTASSIUM CHLORIDE RIDER 100 ML IV ONE (10:09)
[2018-07-22] MEDS ORDERED: MINERAL OIL/PETROLATUM OPH OINT 3.5 GM TUBE BOTH EYES PRN (11:05)
[2018-07-22] MEDS ORDERED: CARVEDILOL 3.125 MG TABLET PO SCH (12:00)
[2018-07-22] MEDS ORDERED: NIFEdipine 10 MG CAPSULE PO PRN (12:14)
[2018-07-22] MEDS: CARVEDILOL 3.125 MG TABLET PO SCH ×2 (12:54→20:27)
[2018-07-22] MEDS: ENOXAPARIN 40 MG/0.4 ML SYRINGE SUBCUT SCH (12:54)
[2018-07-22] MEDS: PANTOPRAZOLE 40 MG VIAL IV SCH (17:09)
[2018-07-22] MEDS ORDERED: ZINC OXIDE PASTE 113 GM TUBE TOP PRN (18:15)
[2018-07-22] MEDS: levETIRAcetam 500 MG TABLET PO SCH (20:27)
[2018-07-22] MEDS: ZINC OXIDE PASTE 113 GM TUBE TOP SCH (21:00)
[2018-07-23] MEDS: MEROPENEM 1,000 MG in SODIUM CHLORIDE 0.9% 100 ML IV SCH ×3 (02:11→18:45)
[2018-07-23] MEDS: DEXAMETHASONE 4 MG/1 ML VIAL IV SCH ×2 (02:12→21:37)
[2018-07-23] MEDS: OXACILLIN 2,000 MG in SODIUM CHLORIDE 0.9% 100 ML IV SCH ×4 (02:13→21:38)
[2018-07-23 04:12] LABS: ABG Base Excess 3.8 MMOL/L (-2.5-2.5); ABG HCO3 27.8 MMOL/L (20-26); ABG Oxygen Saturation 97.1 % (95-100); ABG PCO2 40.1 MM HG (35-48); ABG PH 7.452 (7.35-7.45); ABG PO2 90.8 MM HG (80-95); ABG TCO2 24.2 MMOL/L (23-27); Allen Test Positive
[2018-07-23 04:44] LABS: Basophils % 0.2 % (0.0-0.8); Hematocrit 41.4 VOL% (42.0-52.0); Hemoglobin 12.9 GM/DL (14.0-18.0); Immature Granulocytes % 0.9 %; Immature Granulocytes Absolute 0.15 #; Lymphocytes # 0.8 10*3/uL (1.4-4.0); Lymphocytes % 4.7 % (21.2-54.2); Mean Corpuscular HGB Conc 31.2 GM/DL (32-36); Mean Corpuscular Volume 81.8 FL (87-102); Monocytes % 3.6 % (1.7-12.7); Neutrophils % 90.6 % (38.7-73.9); Platelet Count 279 T/CUMM (130-400); Red Blood Count 5.06 MC/CUMM (3.8-5.5); Red Cell Distribution Width 16.5 % (9.3-17.3); White Blood Count 17.6 T/CUMM (4-12)
[2018-07-23 05:14] LABS: Calcium 8.7 MG/DL (8.5-10.1); Osmolality,Calculated 276.8 MOS/KG (273-304)
[2018-07-23 05:43] LABS: Lymphocytes 5 % (20-55); Segmented Neutrophils 92 % (50-85); Total Cells Counted 100
[2018-07-23 05:44] LABS: Hypochromasia 1+; Platelet Estimate Normal
[2018-07-23 05:45] LABS: Ovalocytes 1+
[2018-07-23] MEDS: FERRIC GLUCONATE COMPLEX 125 MG in SODIUM CHLORIDE 0.9% 100 ML IV SCH (09:30)
[2018-07-23] MEDS: levETIRAcetam 500 MG TABLET PO SCH ×2 (09:30→21:38)
[2018-07-23] MEDS: ZINC OXIDE PASTE 113 GM TUBE TOP SCH ×2 (09:45→21:38)
[2018-07-23] MEDS: ASPIRIN CHEW 81 MG TABLET PO SCH (09:45)
[2018-07-23] MEDS: CARVEDILOL 3.125 MG TABLET PO SCH ×2 (09:45→21:37)
[2018-07-23 11:25] LABS: Apearance,Urine CLEAR (Clear); Bacteria,Urine Occasional /HPF (Few); Bilirubin,Urine Negative (Negative); Blood, Urine Small mg/dL (Negative); Glucose,Urine (UA) 50 mg/dL (Negative); Ketones,Urine 5 mg/dL (Negative); Nitrite,Urine Negative (Negative); Protein,Urine Negative; RBC,Urine 11 /HPF (0-4); Squamous Epithelial Cell,Urine Occasional /HPF (0-10); Urine Color Yellow (Yellow); Urine Specific Gravity 1.025 (1.001-1.035); Urine Urobilinogen < 2.0 EU/DL (0.2-1.0); WBC,Urine 5 /HPF (0-6)
[2018-07-23] MEDS ORDERED: DEXAMETHASONE 4 MG/1 ML VIAL IV SCH (14:00)
[2018-07-23] MEDS: ENOXAPARIN 40 MG/0.4 ML SYRINGE SUBCUT SCH (14:43)
[2018-07-23] MEDS: PANTOPRAZOLE 40 MG TABLET PO SCH (14:43)
[2018-07-23] MEDS: MORPHINE 4 MG/1 ML VIAL IV PRN (22:02)
[2018-07-24] MEDS: MEROPENEM 1,000 MG in SODIUM CHLORIDE 0.9% 100 ML IV SCH ×4 (02:15→16:35)
[2018-07-24] MEDS: OXACILLIN 2,000 MG in SODIUM CHLORIDE 0.9% 100 ML IV SCH ×4 (04:12→21:48)
[2018-07-24 05:14] LABS: Allen Test Positive
[2018-07-24 06:04] LABS: ABG Base Excess 4.4 MMOL/L (-2.5-2.5); ABG HCO3 28.4 MMOL/L (20-26); ABG Oxygen Saturation 98.7 % (95-100); ABG PCO2 40.5 MM HG (35-48); ABG PH 7.457 (7.35-7.45); ABG TCO2 25.2 MMOL/L (23-27)
[2018-07-24 06:33] LABS: Basophils % 0.2 % (0.0-0.8); Hematocrit 37.6 VOL% (42.0-52.0); Hemoglobin 11.7 GM/DL (14.0-18.0); Immature Granulocytes Absolute 0.18 #; Lymphocytes # 1.7 10*3/uL (1.4-4.0); Lymphocytes % 9.4 % (21.2-54.2); Mean Corpuscular HGB Conc 31.1 GM/DL (32-36); Mean Corpuscular Volume 82.3 FL (87-102); Mean Platelet Volume 10.6 FL (9.6-12.0); Monocytes % 4.6 % (1.7-12.7); Neutrophils % 84.8 % (38.7-73.9); Platelet Count 275 T/CUMM (130-400); Red Blood Count 4.57 MC/CUMM (3.8-5.5); Red Cell Distribution Width 16.8 % (9.3-17.3); White Blood Count 18.2 T/CUMM (4-12)
[2018-07-24 06:58] LABS: Calcium 8.2 MG/DL (8.5-10.1); Osmolality,Calculated 278.8 MOS/KG (273-304)
[2018-07-24] MEDS: levETIRAcetam 500 MG TABLET PO SCH ×2 (08:45→21:52)
[2018-07-24] MEDS: ASPIRIN CHEW 81 MG TABLET PO SCH (08:45)
[2018-07-24] MEDS: CARVEDILOL 3.125 MG TABLET PO SCH ×2 (08:45→21:52)
[2018-07-24] MEDS: PANTOPRAZOLE 40 MG TABLET PO SCH (08:45)
[2018-07-24] MEDS: DEXAMETHASONE 4 MG/1 ML VIAL IV SCH ×2 (08:45→21:53)
[2018-07-24] MEDS: ZINC OXIDE PASTE 113 GM TUBE TOP SCH ×2 (09:52→21:56)
[2018-07-24] MEDS: FERRIC GLUCONATE COMPLEX 125 MG in SODIUM CHLORIDE 0.9% 100 ML IV SCH (10:29)
[2018-07-24] MEDS: ENOXAPARIN 40 MG/0.4 ML SYRINGE SUBCUT SCH (11:38)
[2018-07-24] MEDS ORDERED: CLORAZEPATE 3.75 MG TABLET PO PRN (17:49)
[2018-07-25] MEDS: MEROPENEM 1,000 MG in SODIUM CHLORIDE 0.9% 100 ML IV SCH ×2 (01:30→09:35)
[2018-07-25] MEDS: OXACILLIN 2,000 MG in SODIUM CHLORIDE 0.9% 100 ML IV SCH ×4 (04:05→20:57)
[2018-07-25 05:04] LABS: Basophils % 0.1 % (0.0-0.8); Hematocrit 37.4 VOL% (42.0-52.0); Hemoglobin 11.8 GM/DL (14.0-18.0); Immature Granulocytes % 0.6 %; Lymphocytes # 1.1 10*3/uL (1.4-4.0); Lymphocytes % 6.3 % (21.2-54.2); Mean Corpuscular HGB Conc 31.6 GM/DL (32-36); Mean Corpuscular Volume 81.3 FL (87-102); Mean Platelet Volume 11.9 FL (9.6-12.0); Monocytes % 3.7 % (1.7-12.7); Neutrophils % 89.3 % (38.7-73.9); Platelet Count 296 T/CUMM (130-400); Red Cell Distribution Width 17.1 % (9.3-17.3); White Blood Count 17.5 T/CUMM (4-12)
[2018-07-25 05:31] LABS: Calcium 8.2 MG/DL (8.5-10.1); Osmolality,Calculated 278.7 MOS/KG (273-304)
[2018-07-25] MEDS: DEXAMETHASONE 4 MG/1 ML VIAL IV SCH (09:02)
[2018-07-25] MEDS: PANTOPRAZOLE 40 MG TABLET PO SCH (09:02)
[2018-07-25] MEDS: levETIRAcetam 500 MG TABLET PO SCH ×2 (09:02→20:56)
[2018-07-25] MEDS: ASPIRIN CHEW 81 MG TABLET PO SCH (09:02)
[2018-07-25] MEDS: CARVEDILOL 3.125 MG TABLET PO SCH ×2 (09:02→20:56)
[2018-07-25] MEDS: ZINC OXIDE PASTE 113 GM TUBE TOP SCH ×2 (09:03→21:25)
[2018-07-25] MEDS: cefTAZidime 1,000 MG in SYRINGE 1 EACH IV SCH ×2 (11:05→17:06)
[2018-07-25] MEDS: ENOXAPARIN 40 MG/0.4 ML SYRINGE SUBCUT SCH ×2 (11:16→11:33)
[2018-07-25] MEDS: CLORAZEPATE 3.75 MG TABLET PO SCH (17:06)
[2018-07-25] MEDS ORDERED: ALUMINUM/MAGNES/SIMETH MAX STR 30 ML UDCUP PO PRN (20:29)
[2018-07-26] MEDS: cefTAZidime 1,000 MG in SYRINGE 1 EACH IV SCH ×3 (02:15→18:15)
[2018-07-26] MEDS: CLORAZEPATE 3.75 MG TABLET PO SCH ×4 (02:20→23:11)
[2018-07-26] MEDS: OXACILLIN 2,000 MG in SODIUM CHLORIDE 0.9% 100 ML IV SCH ×2 (04:24→09:23)
[2018-07-26 05:04] LABS: Basophils % 0.2 % (0.0-0.8); Eosinophils # 0.1 10*3/uL (0.0-0.87); Eosinophils % 0.7 % (0.00-10.9); Hematocrit 38.5 VOL% (42.0-52.0); Immature Granulocytes % 0.8 %; Immature Granulocytes Absolute 0.14 #; Lymphocytes # 2.3 10*3/uL (1.4-4.0); Lymphocytes % 12.6 % (21.2-54.2); Mean Corpuscular HGB Conc 31.2 GM/DL (32-36); Mean Corpuscular Volume 82.3 FL (87-102); Mean Platelet Volume 10.8 FL (9.6-12.0); Monocytes % 6.9 % (1.7-12.7); Neutrophils % 78.8 % (38.7-73.9); Platelet Count 293 T/CUMM (130-400); Red Blood Count 4.68 MC/CUMM (3.8-5.5); Red Cell Distribution Width 16.9 % (9.3-17.3); White Blood Count 18.3 T/CUMM (4-12)
[2018-07-26 05:23] LABS: Calcium 8.1 MG/DL (8.5-10.1); Osmolality,Calculated 281.4 MOS/KG (273-304)
[2018-07-26] MEDS ORDERED: chlorproMAZINE 25 MG/1 ML AMP IM ONE (08:54)
[2018-07-26] MEDS ORDERED: DEXAMETHASONE 4 MG/1 ML VIAL IV SCH (09:00)
[2018-07-26] MEDS: levETIRAcetam 500 MG TABLET PO SCH ×2 (09:23→23:11)
[2018-07-26] MEDS: ASPIRIN CHEW 81 MG TABLET PO SCH (09:23)
[2018-07-26] MEDS: CARVEDILOL 6.25 MG TABLET PO SCH ×2 (09:23→22:57)
[2018-07-26] MEDS: PANTOPRAZOLE 40 MG TABLET PO SCH (09:23)
[2018-07-26] MEDS: ZINC OXIDE PASTE 113 GM TUBE TOP SCH ×2 (10:10→23:15)
[2018-07-26] MEDS: OXACILLIN 1,000 MG in SODIUM CHLORIDE 0.9% 100 ML IV SCH ×3 (10:53→23:05)
[2018-07-26] MEDS: FLUCONAZOLE 200 MG TABLET PO SCH (10:59)
[2018-07-26] MEDS ORDERED: OXACILLIN 1,000 MG in SODIUM CHLORIDE 0.9% 100 ML IV SCH (11:00)
[2018-07-26] MEDS ORDERED: PANTOPRAZOLE 40 MG VIAL IV SCH (11:00)
[2018-07-26] MEDS: POTASSIUM CHLORIDE RIDER 10 MEQ in PREMIX 1 EACH IV PRN ×2 (11:10→14:15)
[2018-07-26] MEDS: ENOXAPARIN 40 MG/0.4 ML SYRINGE SUBCUT SCH (17:10)
[2018-07-26] MEDS: DEXAMETHASONE 4 MG/1 ML VIAL IV SCH (22:57)
[2018-07-27] MEDS: cefTAZidime 1,000 MG in SYRINGE 1 EACH IV SCH ×3 (02:24→17:35)
[2018-07-27 04:43] LABS: Basophils % 0.1 % (0.0-0.8); Hematocrit 39.8 VOL% (42.0-52.0); Hemoglobin 12.7 GM/DL (14.0-18.0); Immature Granulocytes % 0.7 %; Immature Granulocytes Absolute 0.11 #; Lymphocytes # 0.7 10*3/uL (1.4-4.0); Lymphocytes % 4.5 % (21.2-54.2); Mean Corpuscular HGB Conc 31.9 GM/DL (32-36); Mean Corpuscular Volume 81.6 FL (87-102); Mean Platelet Volume 10.7 FL (9.6-12.0); Monocytes % 3.3 % (1.7-12.7); Neutrophils % 91.4 % (38.7-73.9); Platelet Count 295 T/CUMM (130-400); Red Blood Count 4.88 MC/CUMM (3.8-5.5); White Blood Count 15.9 T/CUMM (4-12)
[2018-07-27 04:57] LABS: Calcium 8.6 MG/DL (8.5-10.1); Osmolality,Calculated 277.8 MOS/KG (273-304)
[2018-07-27] MEDS: OXACILLIN 1,000 MG in SODIUM CHLORIDE 0.9% 100 ML IV SCH ×4 (06:30→23:23)
[2018-07-27 08:57] LABS: Giant Platelets Few; Hypochromasia 2+; Lymphocytes 1 % (20-55); Platelet Estimate Normal; Polychromasia Slight; Segmented Neutrophils 94 % (50-85); Total Cells Counted 100
[2018-07-27 08:58] LABS: Microcytosis 2+
[2018-07-27] MEDS: DEXAMETHASONE 4 MG/1 ML VIAL IV SCH ×2 (09:36→23:18)
[2018-07-27] MEDS: PANTOPRAZOLE 40 MG TABLET PO SCH (09:50)
[2018-07-27] MEDS: FLUCONAZOLE 200 MG TABLET PO SCH (09:50)
[2018-07-27] MEDS: CARVEDILOL 6.25 MG TABLET PO SCH ×2 (09:50→23:26)
[2018-07-27] MEDS: ASPIRIN CHEW 81 MG TABLET PO SCH (09:51)
[2018-07-27] MEDS: levETIRAcetam 500 MG TABLET PO SCH ×2 (09:53→23:27)
[2018-07-27] MEDS: ZINC OXIDE PASTE 113 GM TUBE TOP SCH ×2 (10:00→23:36)
[2018-07-27] MEDS: ENOXAPARIN 40 MG/0.4 ML SYRINGE SUBCUT SCH (12:22)
[2018-07-27] MEDS: CLORAZEPATE 3.75 MG TABLET PO SCH ×3 (16:51→21:13)
[2018-07-28] MEDS: cefTAZidime 1,000 MG in SYRINGE 1 EACH IV SCH ×4 (04:18→17:31)
[2018-07-28 04:22] LABS: Basophils % 0.1 % (0.0-0.8); Hemoglobin 12.2 GM/DL (14.0-18.0); Immature Granulocytes % 0.6 %; Immature Granulocytes Absolute 0.09 #; Lymphocytes # 0.7 10*3/uL (1.4-4.0); Lymphocytes % 4.7 % (21.2-54.2); Mean Corpuscular HGB Conc 32.1 GM/DL (32-36); Mean Corpuscular Volume 80.9 FL (87-102); Mean Platelet Volume 10.9 FL (9.6-12.0); Monocytes % 2.5 % (1.7-12.7); Neutrophils % 92.1 % (38.7-73.9); Platelet Count 334 T/CUMM (130-400); Red Cell Distribution Width 17.2 % (9.3-17.3); White Blood Count 14.6 T/CUMM (4-12)
[2018-07-28 04:41] LABS: Calcium 8.4 MG/DL (8.5-10.1); Osmolality,Calculated 276.1 MOS/KG (273-304)
[2018-07-28 05:01] LABS: Anisocytosis 1+; Burr Cells Few; Hypochromasia Slight; Lymphocytes 6 % (20-55); Microcytosis Slight; Ovalocytes Few; Segmented Neutrophils 92 % (50-85); Target Cells Few; Total Cells Counted 100
[2018-07-28] MEDS: OXACILLIN 1,000 MG in SODIUM CHLORIDE 0.9% 100 ML IV SCH ×4 (07:00→22:49)
[2018-07-28] MEDS: DEXAMETHASONE 4 MG/1 ML VIAL IV SCH ×2 (09:02→21:52)
[2018-07-28] MEDS: PANTOPRAZOLE 40 MG TABLET PO SCH (09:25)
[2018-07-28] MEDS: ASPIRIN CHEW 81 MG TABLET PO SCH (09:25)
[2018-07-28] MEDS: FLUCONAZOLE 200 MG TABLET PO SCH (09:26)
[2018-07-28] MEDS: CARVEDILOL 6.25 MG TABLET PO SCH ×2 (09:26→21:52)
[2018-07-28] MEDS: levETIRAcetam 500 MG TABLET PO SCH ×2 (09:26→21:52)
[2018-07-28] MEDS: LACTULOSE 20 GM/30 ML UDCUP PO PRN (09:27)
[2018-07-28] MEDS: ZINC OXIDE PASTE 113 GM TUBE TOP SCH ×2 (09:27→21:52)
[2018-07-28 10:14] LABS: Platelet Estimate Normal
[2018-07-28] MEDS: ENOXAPARIN 40 MG/0.4 ML SYRINGE SUBCUT SCH (11:50)
[2018-07-28] MEDS: CLORAZEPATE 3.75 MG TABLET PO SCH ×2 (17:19→21:52)
[2018-07-28] MEDS ORDERED: SODIUM PHOSPHATE ENEMA 133 ML BOTTLE RECTAL ONE (19:28)
[2018-07-29] MEDS: cefTAZidime 1,000 MG in SYRINGE 1 EACH IV SCH ×3 (03:43→17:27)
[2018-07-29 04:45] LABS: Basophils % 0.2 % (0.0-0.8); Hematocrit 38.8 VOL% (42.0-52.0); Hemoglobin 12.1 GM/DL (14.0-18.0); Immature Granulocytes % 0.6 %; Immature Granulocytes Absolute 0.12 #; Lymphocytes # 0.9 10*3/uL (1.4-4.0); Lymphocytes % 4.9 % (21.2-54.2); Mean Corpuscular HGB Conc 31.2 GM/DL (32-36); Mean Corpuscular Volume 82.7 FL (87-102); Monocytes % 3.1 % (1.7-12.7); Neutrophils % 91.2 % (38.7-73.9); Platelet Count 340 T/CUMM (130-400); Red Blood Count 4.69 MC/CUMM (3.8-5.5); Red Cell Distribution Width 17.6 % (9.3-17.3); White Blood Count 19.3 T/CUMM (4-12)
[2018-07-29 04:49] LABS: Calcium 8.1 MG/DL (8.5-10.1); Osmolality,Calculated 281.7 MOS/KG (273-304)
[2018-07-29] MEDS: OXACILLIN 1,000 MG in SODIUM CHLORIDE 0.9% 100 ML IV SCH ×4 (05:50→23:00)
[2018-07-29 07:23] LABS: Anisocytosis 1+; Lymphocytes 7 % (20-55); Macrocytosis Slight; Platelet Estimate Normal; Segmented Neutrophils 91 % (50-85); Total Cells Counted 100
[2018-07-29] MEDS: PANTOPRAZOLE 40 MG TABLET PO SCH (09:58)
[2018-07-29] MEDS: FLUCONAZOLE 200 MG TABLET PO SCH (09:58)
[2018-07-29] MEDS: CARVEDILOL 6.25 MG TABLET PO SCH ×2 (09:58→21:17)
[2018-07-29] MEDS: ASPIRIN CHEW 81 MG TABLET PO SCH (09:58)
[2018-07-29] MEDS: levETIRAcetam 500 MG TABLET PO SCH ×2 (09:58→21:16)
[2018-07-29] MEDS: DEXAMETHASONE 4 MG/1 ML VIAL IV SCH (10:05)
[2018-07-29] MEDS: ZINC OXIDE PASTE 113 GM TUBE TOP SCH ×2 (10:07→21:17)
[2018-07-29] MEDS: ENOXAPARIN 40 MG/0.4 ML SYRINGE SUBCUT SCH (12:43)
[2018-07-29] MEDS: LACTULOSE 20 GM/30 ML UDCUP PO PRN (13:55)
[2018-07-29] MEDS: CLORAZEPATE 3.75 MG TABLET PO SCH ×2 (16:38→21:16)
[2018-07-30] MEDS: cefTAZidime 1,000 MG in SYRINGE 1 EACH IV SCH ×2 (03:38→12:53)
[2018-07-30] MEDS: OXACILLIN 1,000 MG in SODIUM CHLORIDE 0.9% 100 ML IV SCH ×2 (04:36→11:03)
[2018-07-30 05:25] LABS: Basophils % 0.1 % (0.0-0.8); Eosinophils % 0.1 % (0.00-10.9); Hematocrit 36.4 VOL% (42.0-52.0); Hemoglobin 11.4 GM/DL (14.0-18.0); Immature Granulocytes % 0.7 %; Immature Granulocytes Absolute 0.09 #; Lymphocytes % 16.7 % (21.2-54.2); Mean Corpuscular HGB Conc 31.3 GM/DL (32-36); Mean Corpuscular Volume 82.5 FL (87-102); Mean Platelet Volume 10.6 FL (9.6-12.0); Monocytes % 4.2 % (1.7-12.7); Neutrophils % 78.2 % (38.7-73.9); Platelet Count 323 T/CUMM (130-400); Red Blood Count 4.41 MC/CUMM (3.8-5.5); Red Cell Distribution Width 17.6 % (9.3-17.3); White Blood Count 12.1 T/CUMM (4-12)
[2018-07-30 06:01] LABS: Calcium 8.6 MG/DL (8.5-10.1); Osmolality,Calculated 278.7 MOS/KG (273-304)
[2018-07-30] MEDS: ASPIRIN CHEW 81 MG TABLET PO SCH (08:53)
[2018-07-30] MEDS: FLUCONAZOLE 200 MG TABLET PO SCH (08:53)
[2018-07-30] MEDS: levETIRAcetam 500 MG TABLET PO SCH (08:53)
[2018-07-30] MEDS: PANTOPRAZOLE 40 MG TABLET PO SCH (08:53)
[2018-07-30] MEDS: CARVEDILOL 6.25 MG TABLET PO SCH (08:53)
[2018-07-30] MEDS ORDERED: DEXAMETHASONE 4 MG/1 ML VIAL IV SCH (09:00)
[2018-07-30] MEDS: ZINC OXIDE PASTE 113 GM TUBE TOP SCH (09:00)
[2018-07-30] MEDS: ENOXAPARIN 40 MG/0.4 ML SYRINGE SUBCUT SCH (12:51)
[2018-07-30 13:32] VITALS: BP 106/59
== END 2018-07-30 15:13 | disposition swing bed (61) | DRG 207 ==
LOC: N.ED 11:11 → N.EDINP 12:05 → N.ICU 15:02 → N.TELES 07-23 21:23
PROVIDERS: ADMIT Internal Medicine Interventional Cardiology; ATTEND Internal Medicine Interventional Cardiology

== ENCOUNTER 2018-08-14 11:33 | Inpatient (IN) ==
[2018-08-14] MEDS ORDERED: DOCUSATE SODIUM 100 MG CAPSULE PO PRN (14:50)
[2018-08-14] MEDS ORDERED: POTASSIUM CHLORIDE 20 MEQ TABLET PO PRN (14:50)
[2018-08-14] MEDS ORDERED: POTASSIUM CHLORIDE 20 MEQ/15 ML UDCUP PER TUBE PRN (14:50)
[2018-08-14] MEDS ORDERED: POTASSIUM CHLORIDE RIDER 10 MEQ in PREMIX 1 EACH IV PRN (14:50)
[2018-08-14] MEDS ORDERED: ONDANSETRON 4 MG/2 ML VIAL IV PRN (14:50)
[2018-08-14] MEDS ORDERED: MORPHINE 4 MG/1 ML VIAL IV PRN (14:50)
[2018-08-14] MEDS ORDERED: ZALEPLON 5 MG CAPSULE PO PRN (14:50)
[2018-08-14] MEDS ORDERED: ACETAMINOPHEN 325 MG TABLET PO PRN (14:50)
[2018-08-14] MEDS ORDERED: MAGNESIUM SULF RIDER 2 GM in PREMIX 1 EACH IV PRN (14:50)
[2018-08-14] MEDS ORDERED: MAGNESIUM SULF RIDER 4 GM in PREMIX 1 EACH IV PRN (14:50)
[2018-08-14] MEDS ORDERED: SODIUM CHLORIDE 0.45% 1,000 ML IV SCH (15:00)
[2018-08-14 15:22] LABS: Basophils % 0.2 % (0.0-0.8); Eosinophils % 0.2 % (0.00-10.9); Hematocrit 38.5 VOL% (42.0-52.0); Hemoglobin 11.8 GM/DL (14.0-18.0); Immature Granulocytes % 0.6 %; Immature Granulocytes Absolute 0.05 #; Lymphocytes # 1.6 10*3/uL (1.4-4.0); Lymphocytes % 18.5 % (21.2-54.2); Mean Corpuscular HGB Conc 30.6 GM/DL (32-36); Mean Corpuscular Volume 88.1 FL (87-102); Mean Platelet Volume 10.3 FL (9.6-12.0); Monocytes % 7.6 % (1.7-12.7); NRBC # 0.03 10*3/uL; Neutrophils % 72.9 % (38.7-73.9); Platelet Count 199 T/CUMM (130-400); Red Blood Count 4.37 MC/CUMM (3.8-5.5); Red Cell Distribution Width 21.7 % (9.3-17.3); White Blood Count 8.9 T/CUMM (4-12)
[2018-08-14 15:44] LABS: Osmolality,Calculated 285.4 MOS/KG (273-304)
[2018-08-14] MEDS ORDERED: MINERAL OIL/PETROLATUM OPH OINT 3.5 GM TUBE BOTH EYES PRN (16:05)
[2018-08-14] MEDS ORDERED: ZINC OXIDE PASTE 113 GM TUBE TOP PRN (16:05)
[2018-08-14] MEDS ORDERED: LACTULOSE 20 GM/30 ML UDCUP PO PRN (16:05)
[2018-08-14] MEDS: ENOXAPARIN 80 MG/0.8 ML SYRINGE SUBCUT SCH (16:06)
[2018-08-14] MEDS: PANTOPRAZOLE 40 MG TABLET PO SCH (16:06)
[2018-08-14] MEDS: DICLOFENAC 1% GEL 100 GM TUBE TOP SCH ×2 (16:23→21:50)
[2018-08-14] MEDS: DILTIAZEM 30 MG TABLET PO PRN (21:50)
[2018-08-14] MEDS: ZINC OXIDE PASTE 113 GM TUBE TOP SCH (21:51)
[2018-08-14] MEDS: levETIRAcetam 500 MG TABLET PO SCH (21:51)
[2018-08-14] MEDS: METOPROLOL SUCCINATE XL 50 MG TABLET PO SCH (21:51)
[2018-08-15] MEDS: ENOXAPARIN 80 MG/0.8 ML SYRINGE SUBCUT SCH ×3 (04:16→21:25)
[2018-08-15 04:50] LABS: Basophils % 0.1 % (0.0-0.8); Hematocrit 37.8 VOL% (42.0-52.0); Hemoglobin 11.8 GM/DL (14.0-18.0); Immature Granulocytes % 0.7 %; Immature Granulocytes Absolute 0.06 #; Lymphocytes # 1.6 10*3/uL (1.4-4.0); Lymphocytes % 19.5 % (21.2-54.2); Mean Corpuscular HGB Conc 31.2 GM/DL (32-36); Mean Corpuscular Volume 86.5 FL (87-102); Mean Platelet Volume 11.8 FL (9.6-12.0); Monocytes % 6.1 % (1.7-12.7); NRBC # 0.04 10*3/uL; Neutrophils % 73.6 % (38.7-73.9); Platelet Count 156 T/CUMM (130-400); Red Blood Count 4.37 MC/CUMM (3.8-5.5); Red Cell Distribution Width 21.6 % (9.3-17.3); White Blood Count 8.3 T/CUMM (4-12)
[2018-08-15 05:30] LABS: Albumin 2.7 G/DL (3.4-5.0); Bilirubin,Total 1.3 MG/DL (0.2-1.0); Calcium 8.9 MG/DL (8.5-10.1); Osmolality,Calculated 276.8 MOS/KG (273-304); Risk Ratio 2.45; Thyroid Stimulating Hormone 0.412 uIU/ml (0.358-3.74); Total Protein 5.4 G/DL (6.4-8.3)
[2018-08-15] MEDS: DILTIAZEM 30 MG TABLET PO PRN ×2 (07:25→16:27)
[2018-08-15] MEDS: FLUCONAZOLE 200 MG TABLET PO SCH (08:58)
[2018-08-15] MEDS: DEXAMETHASONE 4 MG TABLET PO SCH (08:58)
[2018-08-15] MEDS: METOPROLOL SUCCINATE XL 50 MG TABLET PO SCH ×2 (08:58→21:25)
[2018-08-15] MEDS: ASPIRIN EC 81 MG TABLET PO SCH (08:58)
[2018-08-15] MEDS: levETIRAcetam 500 MG TABLET PO SCH ×2 (08:58→21:25)
[2018-08-15] MEDS: PANTOPRAZOLE 40 MG TABLET PO SCH (08:58)
[2018-08-15] MEDS: ZINC OXIDE PASTE 113 GM TUBE TOP SCH ×2 (08:59→21:25)
[2018-08-15] MEDS: DICLOFENAC 1% GEL 100 GM TUBE TOP SCH ×5 (08:59→21:25)
[2018-08-15] MEDS ORDERED: ceFAZolin 1,000 MG VIAL IRRIG ONE (10:03)
[2018-08-16 04:52] LABS: Basophils % 0.1 % (0.0-0.8); Eosinophils % 0.1 % (0.00-10.9); Hematocrit 39.6 VOL% (42.0-52.0); Hemoglobin 12.7 GM/DL (14.0-18.0); Immature Granulocytes % 0.8 %; Immature Granulocytes Absolute 0.07 #; Lymphocytes % 21.2 % (21.2-54.2); Mean Corpuscular HGB Conc 32.1 GM/DL (32-36); Mean Corpuscular Volume 86.8 FL (87-102); Mean Platelet Volume 11.8 FL (9.6-12.0); Monocytes % 7.3 % (1.7-12.7); NRBC # 0.09 10*3/uL; Neutrophils % 70.5 % (38.7-73.9); Platelet Count 207 T/CUMM (130-400); Red Blood Count 4.56 MC/CUMM (3.8-5.5); Red Cell Distribution Width 22.2 % (9.3-17.3); White Blood Count 9.2 T/CUMM (4-12)
[2018-08-16 05:24] LABS: Calcium 8.9 MG/DL (8.5-10.1); Osmolality,Calculated 278.7 MOS/KG (273-304)
[2018-08-16] MEDS: DILTIAZEM 30 MG TABLET PO PRN (08:28)
[2018-08-16] MEDS: METOPROLOL SUCCINATE XL 50 MG TABLET PO SCH ×2 (08:28→20:19)
[2018-08-16] MEDS: ZINC OXIDE PASTE 113 GM TUBE TOP SCH (08:29)
[2018-08-16] MEDS: PANTOPRAZOLE 40 MG TABLET PO SCH (08:29)
[2018-08-16] MEDS ORDERED: ceFAZolin 1,000 MG in SYRINGE 1 EACH IV ONE (08:30)
[2018-08-16] MEDS ORDERED: ceFAZolin 1,000 MG VIAL IRRIG ONE (08:30)
[2018-08-16] MEDS: levETIRAcetam 500 MG TABLET PO SCH ×2 (08:32→20:19)
[2018-08-16] MEDS: DEXAMETHASONE 4 MG TABLET PO SCH ×2 (08:33→18:24)
[2018-08-16] MEDS: DICLOFENAC 1% GEL 100 GM TUBE TOP SCH ×3 (08:33→18:22)
[2018-08-16] MEDS: FLUCONAZOLE 200 MG TABLET PO SCH (08:33)
[2018-08-16] MEDS ORDERED: LIDOCAINE 1% 20 ML VIAL ONE (10:35)
[2018-08-16] MEDS ORDERED: HEPARIN/NACL 0.9% 2 UNITS/ML 500 ML IV ONE (10:35)
[2018-08-16] MEDS ORDERED: ceFAZolin 1,000 MG VIAL ONE (10:35)
[2018-08-16] MEDS ORDERED: TISSUE ADHESIVE 1 EACH APPLICATOR TOP ONE (10:36)
[2018-08-16] MEDS: ASPIRIN EC 81 MG TABLET PO SCH (12:14)
[2018-08-16] MEDS ORDERED: fentaNYL 100 MCG/2 ML VIAL ONE (12:52)
[2018-08-16] MEDS ORDERED: KETAMINE 500 MG/10 ML VIAL ONE (12:52)
[2018-08-16] MEDS: ceFAZolin 1,000 MG in SYRINGE 1 EACH IV SCH (18:22)
[2018-08-16] MEDS: APIXABAN 5 MG TABLET PO SCH (20:19)
[2018-08-17] MEDS: ceFAZolin 1,000 MG in SYRINGE 1 EACH IV SCH (03:22)
[2018-08-17] MEDS: ZINC OXIDE PASTE 113 GM TUBE TOP SCH ×4 (03:24→21:33)
[2018-08-17] MEDS: DICLOFENAC 1% GEL 100 GM TUBE TOP SCH ×3 (03:24→15:57)
[2018-08-17 05:00] LABS: Basophils % 0.1 % (0.0-0.8); Hematocrit 35.9 VOL% (42.0-52.0); Hemoglobin 11.2 GM/DL (14.0-18.0); Immature Granulocytes % 0.5 %; Immature Granulocytes Absolute 0.05 #; Lymphocytes # 0.7 10*3/uL (1.4-4.0); Lymphocytes % 7.9 % (21.2-54.2); Mean Corpuscular HGB Conc 31.2 GM/DL (32-36); Mean Corpuscular Volume 86.9 FL (87-102); Mean Platelet Volume 10.9 FL (9.6-12.0); Monocytes % 4.3 % (1.7-12.7); NRBC # 0.03 10*3/uL; Neutrophils % 87.2 % (38.7-73.9); Platelet Count 159 T/CUMM (130-400); Red Blood Count 4.13 MC/CUMM (3.8-5.5); Red Cell Distribution Width 21.2 % (9.3-17.3); White Blood Count 9.3 T/CUMM (4-12)
[2018-08-17 05:31] LABS: Calcium 8.7 MG/DL (8.5-10.1); Osmolality,Calculated 276.8 MOS/KG (273-304)
[2018-08-17] MEDS: LISINOPRIL 2.5 MG TABLET PO SCH (10:34)
[2018-08-17] MEDS: ASPIRIN EC 81 MG TABLET PO SCH (10:34)
[2018-08-17] MEDS: levETIRAcetam 500 MG TABLET PO SCH ×2 (10:34→21:33)
[2018-08-17] MEDS: DEXAMETHASONE 4 MG TABLET PO SCH (10:34)
[2018-08-17] MEDS: PANTOPRAZOLE 40 MG TABLET PO SCH (10:35)
[2018-08-17] MEDS: FLUCONAZOLE 200 MG TABLET PO SCH (10:35)
[2018-08-17] MEDS: APIXABAN 5 MG TABLET PO SCH ×2 (10:35→21:33)
[2018-08-17] MEDS: METOPROLOL SUCCINATE XL 50 MG TABLET PO SCH ×2 (10:35→21:33)
[2018-08-17] MEDS: DILTIAZEM 30 MG TABLET PO PRN (10:58)
[2018-08-17] MEDS ORDERED: AMIODARONE INJ 450 MG in DEXTROSE 5% 241 ML IV SCH (11:30)
[2018-08-17] MEDS ORDERED: DICLOFENAC 1% GEL 100 GM TUBE TOP PRN (16:32)
[2018-08-17] MEDS: AMIODARONE INJ 450 MG in DEXTROSE 5% 241 ML IV SCH (18:41)
[2018-08-18 04:48] LABS: Albumin 2.7 G/DL (3.4-5.0); Bilirubin,Direct 0.13 MG/DL (0.0-0.20); Bilirubin,Indirect 0.7 MG/DL (0.0-1.0); Bilirubin,Total 0.8 MG/DL (0.2-1.0); Total Protein 5.2 G/DL (6.4-8.3)
[2018-08-18] MEDS: ASPIRIN EC 81 MG TABLET PO SCH (09:33)
[2018-08-18] MEDS: APIXABAN 5 MG TABLET PO SCH ×2 (09:34→21:46)
[2018-08-18] MEDS: levETIRAcetam 500 MG TABLET PO SCH ×2 (09:34→21:46)
[2018-08-18] MEDS: DEXAMETHASONE 4 MG TABLET PO SCH (09:34)
[2018-08-18] MEDS: METOPROLOL SUCCINATE XL 50 MG TABLET PO SCH ×2 (09:34→21:46)
[2018-08-18] MEDS: ZINC OXIDE PASTE 113 GM TUBE TOP SCH ×2 (09:34→21:47)
[2018-08-18] MEDS: PANTOPRAZOLE 40 MG TABLET PO SCH (09:34)
[2018-08-18] MEDS: LISINOPRIL 2.5 MG TABLET PO SCH (09:34)
[2018-08-18] MEDS: AMIODARONE INJ 450 MG in DEXTROSE 5% 241 ML IV SCH (09:37)
[2018-08-18] MEDS: AMIODARONE 200 MG TABLET PO SCH (21:46)
[2018-08-19] MEDS: LISINOPRIL 2.5 MG TABLET PO SCH (09:15)
[2018-08-19] MEDS: PANTOPRAZOLE 40 MG TABLET PO SCH (09:15)
[2018-08-19] MEDS: METOPROLOL SUCCINATE XL 50 MG TABLET PO SCH ×2 (09:15→21:40)
[2018-08-19] MEDS: AMIODARONE 200 MG TABLET PO SCH ×2 (09:15→21:39)
[2018-08-19] MEDS: levETIRAcetam 500 MG TABLET PO SCH ×2 (09:15→21:39)
[2018-08-19] MEDS: DEXAMETHASONE 4 MG TABLET PO SCH (09:15)
[2018-08-19] MEDS: APIXABAN 5 MG TABLET PO SCH ×2 (09:16→21:40)
[2018-08-19] MEDS: ASPIRIN EC 81 MG TABLET PO SCH (09:16)
[2018-08-19] MEDS: ZINC OXIDE PASTE 113 GM TUBE TOP SCH ×2 (09:16→21:00)
[2018-08-20 05:36] LABS: Basophils % 0.1 % (0.0-0.8); Eosinophils # 0.1 10*3/uL (0.0-0.87); Eosinophils % 0.4 % (0.00-10.9); Hematocrit 42.3 VOL% (42.0-52.0); Hemoglobin 13.3 GM/DL (14.0-18.0); Immature Granulocytes % 0.7 %; Immature Granulocytes Absolute 0.08 #; Lymphocytes # 1.9 10*3/uL (1.4-4.0); Lymphocytes % 17.2 % (21.2-54.2); Mean Corpuscular HGB Conc 31.4 GM/DL (32-36); Mean Corpuscular Volume 87.9 FL (87-102); Mean Platelet Volume 10.6 FL (9.6-12.0); Neutrophils % 73.6 % (38.7-73.9); Platelet Count 195 T/CUMM (130-400); Red Blood Count 4.81 MC/CUMM (3.8-5.5); Red Cell Distribution Width 21.7 % (9.3-17.3); White Blood Count 11.3 T/CUMM (4-12)
[2018-08-20 06:01] LABS: Calcium 8.9 MG/DL (8.5-10.1); Osmolality,Calculated 281.4 MOS/KG (273-304)
[2018-08-20] MEDS: LISINOPRIL 2.5 MG TABLET PO SCH (09:38)
[2018-08-20] MEDS: levETIRAcetam 500 MG TABLET PO SCH (09:38)
[2018-08-20] MEDS: ASPIRIN EC 81 MG TABLET PO SCH (09:38)
[2018-08-20] MEDS: DEXAMETHASONE 4 MG TABLET PO SCH (09:38)
[2018-08-20] MEDS: PANTOPRAZOLE 40 MG TABLET PO SCH (09:38)
[2018-08-20] MEDS: METOPROLOL SUCCINATE XL 50 MG TABLET PO SCH (09:38)
[2018-08-20] MEDS: APIXABAN 5 MG TABLET PO SCH (09:38)
[2018-08-20] MEDS: AMIODARONE 200 MG TABLET PO SCH (09:38)
[2018-08-20] MEDS: ZINC OXIDE PASTE 113 GM TUBE TOP SCH (09:42)
[2018-08-20 11:54] VITALS: BP 107/62
== END 2018-08-20 15:07 | disposition swing bed (61) | DRG 227 ==
LOC: N.TELEN 14:30 → N.ICU 08-16 14:05 → N.TELEN 08-17 16:53
PROVIDERS: ADMIT Internal Medicine Clinical Cardiac Electrophysiology; ATTEND Internal Medicine Clinical Cardiac Electrophysiology
PROC: CLDCICD (2018-08-16 08:45)

== ENCOUNTER 2019-09-03 16:33 | Inpatient (IN) ==
[2019-09-03] MEDS ORDERED: FUROSEMIDE 40 MG/4 ML VIAL IV STA (17:00)
[2019-09-03] MEDS ORDERED: DILTIAZEM 50 MG/10 ML VIAL IV STA (17:00)
[2019-09-03] MEDS ORDERED: dilTIAZem Drip 125 MG/125 ML PREMIX IV SCH (17:30)
[2019-09-03 18:11] LABS: Immature Granulocytes % 0.3 %; Immature Granulocytes Absolute 0.02 #; White Blood Count 6.7 T/CUMM (4-12)
[2019-09-03] MEDS ORDERED: AMIODARONE INJ 150 MG in DEXTROSE 5% 100 ML IV ONE (18:21)
[2019-09-03] MEDS ORDERED: SODIUM CHLORIDE 0.9% 1,000 ML IV STA ×2 (18:22→19:06)
[2019-09-03] MEDS ORDERED: NOREPINEPHRINE 4 MG/4 ML VIAL IV ONE (18:30)
[2019-09-03] MEDS ORDERED: AMIODARONE INJ 450 MG in DEXTROSE 5% 241 ML IV SCH (18:30)
[2019-09-03 18:33] LABS: Albumin 2.9 G/DL (3.4-5.0); Basophils % 0.3 % (0.0-0.8); Bilirubin,Total 1.2 MG/DL (0.2-1.0); Calcium 9.2 MG/DL (8.5-10.1); Eosinophils % 0.1 % (0.00-10.9); Lymphocytes # 1.8 10*3/uL (1.4-4.0); Lymphocytes % 26.2 % (21.2-54.2); Mean Corpuscular HGB Conc 30.7 GM/DL (32-36); Mean Corpuscular Volume 86.4 FL (87-102); Mean Platelet Volume 12.9 FL (9.6-12.0); Monocytes % 3.7 % (1.7-12.7); NRBC # 0.02 10*3/uL; Neutrophils % 69.4 % (38.7-73.9); Osmolality,Calculated 290.3 MOS/KG (273-304); Platelet Count 246 T/CUMM (130-400); Red Cell Distribution Width 20.1 % (9.3-17.3); Thyroid Stimulating Hormone 1.96 uIU/ml (0.358-3.74); Total Protein 6.5 G/DL (6.4-8.3)
[2019-09-03 18:34] LABS: Hemoglobin 17.5 GM/DL (14.0-18.0)
[2019-09-03] MEDS: NOREPINEPHRINE 8 MG in SODIUM CHLORIDE 0.9% 242 ML IV SCH (18:45)
[2019-09-03] MEDS ORDERED: MORPHINE 4 MG/1 ML VIAL IV PRN (19:20)
[2019-09-03] MEDS ORDERED: ALBUTEROL 2.5 MG/3 ML NEB RESP TX PRN (19:20)
[2019-09-03] MEDS ORDERED: SODIUM CHLORIDE 0.9% 1,000 ML IV SCH (19:30)
[2019-09-03 19:52] LABS: Apearance,Urine Slightly Hazy (Clear); Bilirubin,Urine Negative (Negative); Blood, Urine Negative (Negative); Glucose,Urine (UA) Negative (Negative); Hyaline Casts,Urine 12 /LPF (0-3); Ketones,Urine Negative (Negative); Mucus,Urine Few /LPF (Occasional); Nitrite,Urine Negative (Negative); Protein,Urine Negative; RBC,Urine 4 /HPF (0-4); Squamous Epithelial Cell,Urine Occasional /HPF (0-10); Urine Color Amber (Yellow); Urine Specific Gravity 1.027 (1.001-1.035); WBC,Urine 3 /HPF (0-6)
[2019-09-03] MEDS: ALBUMIN 25% 25 GM in PREMIX 1 EACH IV SCH (21:10)
[2019-09-03] MEDS: levETIRAcetam 500 MG TABLET PO SCH (21:21)
[2019-09-03] MEDS: APIXABAN 5 MG TABLET PO SCH (21:21)
[2019-09-04] MEDS: NOREPINEPHRINE 8 MG in SODIUM CHLORIDE 0.9% 242 ML IV SCH (01:09)
[2019-09-04 01:13] LABS: CKMB % 3.7 %; Troponin I 0.041 NG/ML (0.00-0.045)
[2019-09-04] MEDS: ONDANSETRON 4 MG/2 ML VIAL IV PRN (01:50)
[2019-09-04] MEDS: AMIODARONE INJ 450 MG in DEXTROSE 5% 241 ML IV SCH ×2 (03:07→17:37)
[2019-09-04 03:15] LABS: INR 2.5
[2019-09-04 03:17] LABS: PT Patient Result 25.2 SECS (9.8-11.9)
[2019-09-04 03:22] LABS: Basophils % 0.2 % (0.0-0.8); Hematocrit 55.7 VOL% (42.0-52.0); Hemoglobin 17.1 GM/DL (14.0-18.0); Immature Granulocytes % 0.6 %; Immature Granulocytes Absolute 0.05 #; Lymphocytes % 23.8 % (21.2-54.2); Mean Corpuscular HGB Conc 30.7 GM/DL (32-36); Mean Corpuscular Volume 86.9 FL (87-102); Mean Platelet Volume 11.9 FL (9.6-12.0); Monocytes % 6.7 % (1.7-12.7); NRBC # 0.07 10*3/uL; Neutrophils % 68.7 % (38.7-73.9); Platelet Count 201 T/CUMM (130-400); Red Blood Count 6.41 MC/CUMM (3.8-5.5); White Blood Count 8.5 T/CUMM (4-12)
[2019-09-04 04:12] LABS: Albumin 3.2 G/DL (3.4-5.0); Bilirubin,Total 2.1 MG/DL (0.2-1.0); Calcium 8.8 MG/DL (8.5-10.1); Osmolality,Calculated 297.7 MOS/KG (273-304); Total Protein 6.4 G/DL (6.4-8.3)
[2019-09-04 04:21] LABS: Macrocytosis 1+; Platelet Estimate Normal; Polychromasia Few
[2019-09-04] MEDS ORDERED: SODIUM BICARBONATE 50 MEQ/50 ML VIAL IV ONE (04:22)
[2019-09-04] MEDS ORDERED: SODIUM CHLORIDE 0.9% 1,000 ML IV ONE (04:29)
[2019-09-04] MEDS ORDERED: SODIUM CHLORIDE 0.9% 1,000 ML IV SCH (04:30)
[2019-09-04] MEDS: ALBUMIN 25% 25 GM in PREMIX 1 EACH IV SCH ×3 (04:45→20:54)
[2019-09-04] MEDS: SODIUM BICARB INJ 100 MEQ in DEXTROSE 5% 1,000 ML IV SCH ×2 (05:48→17:10)
[2019-09-04] MEDS ORDERED: PANTOPRAZOLE 40 MG TABLET PO SCH (09:00)
[2019-09-04] MEDS ORDERED: AMIODARONE 200 MG TABLET PO SCH (09:00)
[2019-09-04] MEDS: levETIRAcetam 500 MG TABLET PO SCH ×2 (09:14→20:55)
[2019-09-04] MEDS: ASPIRIN EC 81 MG TABLET PO SCH (09:14)
[2019-09-04] MEDS: APIXABAN 5 MG TABLET PO SCH ×2 (09:14→20:55)
[2019-09-04] MEDS: PANTOPRAZOLE 40 MG TABLET PO SCH (09:15)
[2019-09-04] MEDS: AMIODARONE 200 MG TABLET PO SCH (20:55)
[2019-09-05 02:49] LABS: Albumin 3.6 G/DL (3.4-5.0); Bilirubin,Total 2.1 MG/DL (0.2-1.0); Osmolality,Calculated 283.7 MOS/KG (273-304); Total Protein 6.1 G/DL (6.4-8.3)
[2019-09-05 03:02] LABS: Basophils % 0.1 % (0.0-0.8); Eosinophils % 0.1 % (0.00-10.9); Hematocrit 48.4 VOL% (42.0-52.0); Hemoglobin 15.1 GM/DL (14.0-18.0); Immature Granulocytes % 0.9 %; Immature Granulocytes Absolute 0.19 #; Lymphocytes # 1.7 10*3/uL (1.4-4.0); Lymphocytes % 8.3 % (21.2-54.2); Mean Corpuscular HGB Conc 31.2 GM/DL (32-36); Mean Corpuscular Volume 85.7 FL (87-102); Mean Platelet Volume 12.9 FL (9.6-12.0); Monocytes % 4.8 % (1.7-12.7); NRBC # 0.32 10*3/uL; Neutrophils % 85.8 % (38.7-73.9); Platelet Count 145 T/CUMM (130-400); Red Blood Count 5.65 MC/CUMM (3.8-5.5); Red Cell Distribution Width 20.2 % (9.3-17.3); White Blood Count 20.2 T/CUMM (4-12)
[2019-09-05 03:47] LABS: Band Neutrophils 2 % (0-10); Lymphocytes 10 % (20-55); Nucleated Red Blood Cells 3 (0-5); Platelet Estimate Normal; Segmented Neutrophils 85 % (50-85); Total Cells Counted 100
[2019-09-05 03:50] LABS: Anisocytosis 2+; Hypochromasia 1+; Microcytosis 1+; Polychromasia Few
[2019-09-05 03:51] LABS: Acanthocytes Few; Macrocytosis Slight
[2019-09-05 03:52] LABS: Schistocytes Few
[2019-09-05 03:53] LABS: Target Cells Slight
[2019-09-05] MEDS: SODIUM BICARB INJ 100 MEQ in DEXTROSE 5% 1,000 ML IV SCH ×2 (04:30→16:28)
[2019-09-05] MEDS: ALBUMIN 25% 25 GM in PREMIX 1 EACH IV SCH (05:41)
[2019-09-05] MEDS: ASPIRIN EC 81 MG TABLET PO SCH (08:13)
[2019-09-05] MEDS: AMIODARONE 200 MG TABLET PO SCH ×2 (08:13→21:31)
[2019-09-05] MEDS: PANTOPRAZOLE 40 MG TABLET PO SCH (08:13)
[2019-09-05] MEDS: levETIRAcetam 500 MG TABLET PO SCH ×2 (08:13→21:31)
[2019-09-05] MEDS: APIXABAN 5 MG TABLET PO SCH ×2 (08:13→21:31)
[2019-09-05] MEDS: DOBUTamine 500 MG/250 ML PREMIX IV SCH (08:19)
[2019-09-05] MEDS ORDERED: FUROSEMIDE 40 MG/4 ML VIAL IV SCH (09:00)
[2019-09-06] MEDS: DOBUTamine 500 MG/250 ML PREMIX IV SCH ×2 (00:40→13:42)
[2019-09-06] MEDS: SODIUM BICARB INJ 100 MEQ in DEXTROSE 5% 1,000 ML IV SCH (03:06)
[2019-09-06 06:13] LABS: Hematocrit 36.6 VOL% (42.0-52.0); Hemoglobin 12.1 GM/DL (14.0-18.0); Immature Granulocytes % 0.4 %; Immature Granulocytes Absolute 0.05 #; Mean Corpuscular HGB Conc 33.1 GM/DL (32-36); Mean Corpuscular Volume 80.8 FL (87-102); Mean Platelet Volume 12.8 FL (9.6-12.0); NRBC # 0.21 10*3/uL; Neutrophils % 88.6 % (38.7-73.9); Platelet Count 141 T/CUMM (130-400); Red Blood Count 4.53 MC/CUMM (3.8-5.5)
[2019-09-06 06:23] LABS: Calcium 8.1 MG/DL (8.5-10.1); Osmolality,Calculated 287.7 MOS/KG (273-304)
[2019-09-06] MEDS ORDERED: METOPROLOL TARTRATE 5 MG/5 ML VIAL IV ONE (08:41)
[2019-09-06] MEDS: APIXABAN 5 MG TABLET PO SCH ×2 (10:02→21:13)
[2019-09-06] MEDS: levETIRAcetam 500 MG TABLET PO SCH ×2 (10:02→21:13)
[2019-09-06] MEDS: ASPIRIN EC 81 MG TABLET PO SCH (10:02)
[2019-09-06] MEDS: AMIODARONE 200 MG TABLET PO SCH ×2 (10:02→21:13)
[2019-09-06] MEDS: SODIUM CHLORIDE 0.45% 1,000 ML IV SCH (12:47)
[2019-09-07] MEDS: SODIUM CHLORIDE 0.45% 1,000 ML IV SCH (01:46)
[2019-09-07] MEDS: MORPHINE 4 MG/1 ML VIAL IV PRN ×3 (03:02→20:32)
[2019-09-07 03:47] LABS: Eosinophils % 0.1 % (0.00-10.9); Hemoglobin 11.8 GM/DL (14.0-18.0); Immature Granulocytes % 0.2 %; Immature Granulocytes Absolute 0.02 #; Lymphocytes # 0.9 10*3/uL (1.4-4.0); Lymphocytes % 11.1 % (21.2-54.2); Mean Corpuscular HGB Conc 32.8 GM/DL (32-36); Mean Corpuscular Volume 79.5 FL (87-102); Mean Platelet Volume 12.3 FL (9.6-12.0); Monocytes % 3.6 % (1.7-12.7); NRBC # 0.03 10*3/uL; Platelet Count 122 T/CUMM (130-400); Red Blood Count 4.53 MC/CUMM (3.8-5.5); Red Cell Distribution Width 18.1 % (9.3-17.3)
[2019-09-07 04:01] LABS: Calcium 7.8 MG/DL (8.5-10.1)
[2019-09-07] MEDS: DOBUTamine 500 MG/250 ML PREMIX IV SCH (05:56)
[2019-09-07] MEDS: POTASSIUM CHLORIDE 20 MEQ TABLET PO PRN ×3 (08:19→15:02)
[2019-09-07] MEDS: APIXABAN 5 MG TABLET PO SCH ×2 (08:20→20:26)
[2019-09-07] MEDS: levETIRAcetam 500 MG TABLET PO SCH ×2 (08:20→20:26)
[2019-09-07] MEDS: ASPIRIN EC 81 MG TABLET PO SCH (08:20)
[2019-09-07] MEDS: AMIODARONE 200 MG TABLET PO SCH ×2 (08:20→20:26)
[2019-09-07] MEDS: METOPROLOL SUCCINATE XL 25 MG TABLET PO SCH (09:31)
[2019-09-07] MEDS ORDERED: FUROSEMIDE 40 MG/4 ML VIAL IV SCH (10:00)
[2019-09-07 12:12] LABS: Total Protein 24 Hr Ur Result 368 MG/24HR (0-149.1); Total Volume,Urine 1150 ML (400-2000)
[2019-09-07] MEDS: ONDANSETRON 4 MG/2 ML VIAL IV PRN (20:32)
[2019-09-08 05:32] LABS: Basophils % 0.1 % (0.0-0.8); Hematocrit 49.6 VOL% (42.0-52.0); Hemoglobin 15.9 GM/DL (14.0-18.0); Immature Granulocytes % 0.7 %; Immature Granulocytes Absolute 0.07 #; Lymphocytes # 0.7 10*3/uL (1.4-4.0); Lymphocytes % 7.1 % (21.2-54.2); Mean Corpuscular HGB Conc 32.1 GM/DL (32-36); Mean Corpuscular Volume 82.4 FL (87-102); Monocytes % 6.9 % (1.7-12.7); NRBC # 0.07 10*3/uL; Neutrophils % 85.2 % (38.7-73.9); Platelet Count 121 T/CUMM (130-400); Red Blood Count 6.02 MC/CUMM (3.8-5.5); Red Cell Distribution Width 19.9 % (9.3-17.3); White Blood Count 9.5 T/CUMM (4-12)
[2019-09-08 05:34] LABS: 24 Hr Protein (Bench) 368 MG/24HR (0-149.1); Total Protein (Chem) 6.6 G/DL (6.4-8.3)
[2019-09-08 05:59] LABS: Calcium 8.8 MG/DL (8.5-10.1); Osmolality,Calculated 274.4 MOS/KG (273-304)
[2019-09-08 08:27] LABS: Albumin (SPE) Rel % 77.2 %; Alpha 1 (SPE) Rel % 2.3 %; Alpha 2 (SPE) Rel % 5.1 %; Beta (SPE) Rel % 5.5 %; Gamma (SPE) Rel % 9.9 %
[2019-09-08 08:29] LABS: Albumin (SPE) 5.1 G/DL (3.2-5.3)
[2019-09-08 08:30] LABS: Alpha 1 (SPE) 0.2 G/DL (0.1-0.4); Alpha 2 (SPE) 0.3 G/DL (0.4-1.0); Beta (SPE) 0.4 G/DL (0.5-1.1); Gamma (SPE) 0.7 G/DL (0.7-1.7)
[2019-09-08] MEDS: FUROSEMIDE 40 MG/4 ML VIAL IV SCH ×2 (08:55→15:22)
[2019-09-08] MEDS: AMIODARONE 200 MG TABLET PO SCH ×2 (08:56→21:52)
[2019-09-08] MEDS: levETIRAcetam 500 MG TABLET PO SCH ×2 (08:56→21:52)
[2019-09-08] MEDS: METOPROLOL SUCCINATE XL 25 MG TABLET PO SCH (08:56)
[2019-09-08] MEDS: APIXABAN 5 MG TABLET PO SCH ×2 (08:56→21:53)
[2019-09-08] MEDS: ASPIRIN EC 81 MG TABLET PO SCH (08:56)
[2019-09-08] MEDS: MORPHINE 4 MG/1 ML VIAL IV PRN (22:10)
[2019-09-09 05:56] LABS: Calcium 9.4 MG/DL (8.5-10.1); Osmolality,Calculated 280.2 MOS/KG (273-304)
[2019-09-09 06:46] LABS: Immunoglobulin A 272 MG/DL (70-400); Immunoglobulin G 1070 MG/DL (700-1600); Immunoglobulin M 147 MG/DL (40-230)
[2019-09-09] MEDS: DOBUTamine 500 MG/250 ML PREMIX IV SCH ×2 (09:03→21:29)
[2019-09-09] MEDS: ASPIRIN EC 81 MG TABLET PO SCH (09:08)
[2019-09-09] MEDS: levETIRAcetam 500 MG TABLET PO SCH ×2 (09:08→21:27)
[2019-09-09] MEDS: APIXABAN 5 MG TABLET PO SCH ×2 (09:08→21:27)
[2019-09-09] MEDS: METOPROLOL SUCCINATE XL 25 MG TABLET PO SCH (09:08)
[2019-09-09] MEDS: FUROSEMIDE 40 MG/4 ML VIAL IV SCH ×2 (09:08→16:06)
[2019-09-09] MEDS: AMIODARONE 200 MG TABLET PO SCH ×2 (09:09→21:27)
[2019-09-09 11:58] LABS: Immunoglobulin A (Chem) 272 MG/DL (70-400); Immunoglobulin G (Chem) 1070 MG/DL (700-1600); Immunoglobulin M (Chem) 147 MG/DL (40-230)
[2019-09-09] MEDS ORDERED: LORazepam 0.5 MG TABLET PO PRN (13:36)
[2019-09-10 05:40] LABS: Basophils % 0.1 % (0.0-0.8); Eosinophils % 0.1 % (0.00-10.9); Hematocrit 43.8 VOL% (42.0-52.0); Hemoglobin 14.4 GM/DL (14.0-18.0); Immature Granulocytes % 0.4 %; Immature Granulocytes Absolute 0.04 #; Lymphocytes # 0.4 10*3/uL (1.4-4.0); Lymphocytes % 4.2 % (21.2-54.2); Mean Corpuscular HGB Conc 32.9 GM/DL (32-36); Mean Corpuscular Volume 79.9 FL (87-102); Mean Platelet Volume 11.5 FL (9.6-12.0); Neutrophils % 91.2 % (38.7-73.9); Platelet Count 139 T/CUMM (130-400); Red Blood Count 5.48 MC/CUMM (3.8-5.5); Red Cell Distribution Width 18.6 % (9.3-17.3); White Blood Count 10.1 T/CUMM (4-12)
[2019-09-10 05:57] LABS: Calcium 8.2 MG/DL (8.5-10.1); Osmolality,Calculated 288.7 MOS/KG (273-304)
[2019-09-10 06:09] LABS: Band Neutrophils 1 % (0-10); Hypochromasia 1+; Lymphocytes 2 % (20-55); Segmented Neutrophils 94 % (50-85); Total Cells Counted 100
[2019-09-10 06:10] LABS: Acanthocytes Few; Anisocytosis 1+; Microcytosis 1+; Ovalocytes Slight; Target Cells Few
[2019-09-10 06:11] LABS: Platelet Estimate Adequate
[2019-09-10] MEDS: DOBUTamine 500 MG/250 ML PREMIX IV SCH ×2 (09:24→23:43)
[2019-09-10] MEDS: FUROSEMIDE 40 MG/4 ML VIAL IV SCH ×2 (09:25→15:09)
[2019-09-10] MEDS: ASPIRIN EC 81 MG TABLET PO SCH (09:26)
[2019-09-10] MEDS: APIXABAN 5 MG TABLET PO SCH ×2 (09:26→21:20)
[2019-09-10] MEDS: AMIODARONE 200 MG TABLET PO SCH ×2 (09:26→21:20)
[2019-09-10] MEDS: levETIRAcetam 500 MG TABLET PO SCH ×2 (09:26→21:21)
[2019-09-10] MEDS: METOPROLOL SUCCINATE XL 25 MG TABLET PO SCH (09:27)
[2019-09-11 06:09] LABS: Basophils % 0.1 % (0.0-0.8); Eosinophils % 0.1 % (0.00-10.9); Hemoglobin 13.5 GM/DL (14.0-18.0); Immature Granulocytes % 0.6 %; Immature Granulocytes Absolute 0.05 #; Lymphocytes # 0.4 10*3/uL (1.4-4.0); Lymphocytes % 4.7 % (21.2-54.2); Mean Corpuscular HGB Conc 32.9 GM/DL (32-36); Mean Corpuscular Volume 79.6 FL (87-102); Mean Platelet Volume 12.2 FL (9.6-12.0); Monocytes % 4.3 % (1.7-12.7); Neutrophils % 90.2 % (38.7-73.9); Platelet Count 126 T/CUMM (130-400); Red Blood Count 5.15 MC/CUMM (3.8-5.5); Red Cell Distribution Width 18.1 % (9.3-17.3); White Blood Count 8.8 T/CUMM (4-12)
[2019-09-11 06:35] LABS: Calcium 8.1 MG/DL (8.5-10.1); Osmolality,Calculated 290.3 MOS/KG (273-304)
[2019-09-11 06:37] LABS: Band Neutrophils 1 % (0-10); Burr Cells Slight; Hypochromasia Slight; Lymphocytes 3 % (20-55); Ovalocytes Slight; Platelet Estimate Normal; Segmented Neutrophils 92 % (50-85); Total Cells Counted 100
[2019-09-11] MEDS: FUROSEMIDE 40 MG/4 ML VIAL IV SCH ×2 (09:56→15:43)
[2019-09-11] MEDS: METOPROLOL SUCCINATE XL 25 MG TABLET PO SCH (09:57)
[2019-09-11] MEDS: levETIRAcetam 500 MG TABLET PO SCH ×2 (09:57→21:21)
[2019-09-11] MEDS: APIXABAN 5 MG TABLET PO SCH ×2 (09:57→21:21)
[2019-09-11] MEDS: POTASSIUM CHLORIDE 20 MEQ TABLET PO PRN ×2 (09:57→12:38)
[2019-09-11] MEDS: ASPIRIN EC 81 MG TABLET PO SCH (09:57)
[2019-09-11] MEDS: AMIODARONE 200 MG TABLET PO SCH ×2 (09:58→21:21)
[2019-09-11] MEDS: DOBUTamine 500 MG/250 ML PREMIX IV SCH (17:14)
[2019-09-12 05:48] LABS: Basophils % 0.2 % (0.0-0.8); Eosinophils % 0.1 % (0.00-10.9); Hematocrit 41.6 VOL% (42.0-52.0); Immature Granulocytes % 0.3 %; Immature Granulocytes Absolute 0.03 #; Lymphocytes # 0.5 10*3/uL (1.4-4.0); Lymphocytes % 5.3 % (21.2-54.2); Mean Corpuscular HGB Conc 33.7 GM/DL (32-36); Mean Corpuscular Volume 79.7 FL (87-102); Mean Platelet Volume 12.2 FL (9.6-12.0); Monocytes % 4.3 % (1.7-12.7); Neutrophils % 89.8 % (38.7-73.9); Red Blood Count 5.22 MC/CUMM (3.8-5.5); White Blood Count 9.6 T/CUMM (4-12)
[2019-09-12 05:50] LABS: Platelet Count 118 T/CUMM (130-400)
[2019-09-12 07:05] LABS: Band Neutrophils 2 % (0-10); Burr Cells Slight; Hypochromasia Slight; Lymphocytes 2 % (20-55); Ovalocytes Slight; Platelet Estimate Decreased; Segmented Neutrophils 94 % (50-85); Total Cells Counted 100
[2019-09-12 07:18] LABS: Calcium 8.1 MG/DL (8.5-10.1); Osmolality,Calculated 281.5 MOS/KG (273-304)
[2019-09-12] MEDS: FUROSEMIDE 40 MG/4 ML VIAL IV SCH (09:59)
[2019-09-12] MEDS: levETIRAcetam 500 MG TABLET PO SCH (10:00)
[2019-09-12] MEDS: AMIODARONE 200 MG TABLET PO SCH (10:00)
[2019-09-12] MEDS: ASPIRIN EC 81 MG TABLET PO SCH (10:00)
[2019-09-12] MEDS: METOPROLOL SUCCINATE XL 25 MG TABLET PO SCH (10:00)
[2019-09-12] MEDS: APIXABAN 5 MG TABLET PO SCH (10:00)
[2019-09-12] MEDS: DOBUTamine 500 MG/250 ML PREMIX IV SCH (10:01)
[2019-09-12 12:35] VITALS: BP 106/50
== END 2019-09-12 13:55 | disposition hospice, home (50) | DRG 682 ==
LOC: N.ED 16:33 → N.EDINP 19:20 → SUATTDRO 19:20 → N.ICU 19:45 → N.TELES 09-05 13:51
PROVIDERS: ADMIT Internal Medicine; ATTEND Internal Medicine